=== PATIENT | female | born 1970 | race Caucasian/White ===

== ENCOUNTER → 2016-06-14 | Outpatient (CLI) | payer MEDICARE ==
[2016-06-14 13:13] VITALS: BP 136/63; PULSE 85; RESP 16; TEMP 98.3; BMI 39.4
--- NOTE | 2016-06-14 16:34 | P.HPBAR ---
Bariatric H&P - History & Physicial H&P Date: 06/14/16 History & Physicial: Visit/CC: Sleeve follow-up Patient initial contact: Initial weight: 132.857 kg Initial weight in pounds: 292.90 Height: 5 ft 4.5 in Initial BMI: 49.5 Last weight: Current weight: 105.942 kg Current weight in pounds: 233.00 Current BMI: 39.4 [place] body weight (based on NIH guidelines): 55.565 kg Excess body weight loss: 35.1% The patient is a 45 year-old F who presents for Bariatric Assessment. The patient presents today for sleeve follow-up. She is doing quite well. She lost 65 pounds total. She's lost 15 pounds her last visit. The patient is minimal planes of GERD. Past Medical History Additional Past Medical History / Comment(s): neuropathy, RSD, venous reflex disease History of Any Multi-Drug Resistant Organisms: None Reported Past Surgical History: Cholecystectomy, Joint Replacement, Tubal Ligation, Uterine Ablation Additional Past Surgical History / Comment(s): spinal cord stim, STIMULATOR REMOVED THEN PAIN PUMP INSERTED, right little finger reconnected, right ankle ORIF, 8-2-16 lap sleeve Past Anesthesia/Blood Transfusion Reactions: No Reported Reaction, Motion Sickness Additional Past Anesthesia/Blood Transfusion Reaction / Comm: clausterphobic Past Psychological History: Depression Additional Psychological History / Comment(s): pt stated feels well maintaimned by her medications has no thoughts of harmiong self Smoking Status: Never smoker Past Alcohol Use History: None Reported Additional Past Alcohol Use History / Comment(s): QUIT SMOKING 02/2013- SMOKED 1 PPD FOR 15 YRS Past Drug Use History: None Reported - Past Family History Mother Family Medical History: COPD Additional Family Medical History / Comment(s): history of breast and ovarian cancer in maternal side Father Family Medical History: Unable to Obtain Additional Family Medical History / Comment(s): pt was raised by step father Surgical - Exam Vital Signs Temp Pulse Resp BP 98.3 F 85 16 136/63 06/14/16 13:09 06/14/16 13:09 06/14/16 13:09 06/14/16 13:09 - General well developed, no distress - Eyes PERRL - ENT normal pinna - Neck no masses - Respiratory normal expansion - Cardiovascular Rhythm: regular - Abdomen Abdomen: soft, non tender Bariatric Assessment & Plan Plan: Status post sleeve gastric antrum. Patient is doing quite well. Her GERD symptoms will be observed. Bariatric Checklist Checklist: Plan: Checklist: EGD: 1. Hiatal hernia: 2. H. Pylori: HgbA1c: Vitamin D: Smoking: Never smoker Primary care physician referral: Dr. Jose Benjamin Psychiatry clearance: Cardiology clearance: Sleep study: Diet journal: VTE risk score: VTE risk level: Rehab needs at discharge:
== END | disposition home or self-care (01) ==
LOC: BARWHC3 12:48
PROVIDERS: ATTEND Surgery
DX: Z48.815 Encounter for surgical aftercare following surgery on the digestive system (principal); Z71.3 Dietary counseling and surveillance; E66.01 Morbid (severe) obesity due to excess calories; Z98.84 Bariatric surgery status; K21.9 Gastro-esophageal reflux disease without esophagitis; Z68.39 Body mass index [BMI] 39.0-39.9, adult
CPT/HCPCS: 97803; G0463; 99211

== ENCOUNTER → 2016-07-19 | Outpatient (CLI) | payer MEDICARE ==
[2016-07-19 13:51] VITALS: BP 141/63; PULSE 88; RESP 16; TEMP 98.1; BMI 38.6
--- NOTE | 2016-07-19 14:31 | P.HPBAR ---
Bariatric H&P - History & Physicial H&P Date: 07/19/16 History & Physicial: Visit/CC: Sleeve 01/06/16 Patient initial contact: Initial weight: 132.857 kg Initial weight in pounds: 292.90 Height: 5 ft 4.5 in Initial BMI: 49.5 Last weight: Current weight: 103.618 kg Current weight in pounds: 228.00 Current BMI: 38.6 [place] body weight (based on NIH guidelines): 55.565 kg Excess body weight loss: 38.0% The patient is a 45 year-old F who presents for Bariatric Assessment. The patient presents today for sleeve gastrectomy follow-up. She is doing quite well. She is loss another 6 pounds. Her current weight is 220 pounds. She's had some mild GERD symptoms. Past Medical History Additional Past Medical History / Comment(s): neuropathy, RSD, venous reflex disease History of Any Multi-Drug Resistant Organisms: None Reported Past Surgical History: Cholecystectomy, Joint Replacement, Tubal Ligation, Uterine Ablation Additional Past Surgical History / Comment(s): spinal cord stim, STIMULATOR REMOVED THEN PAIN PUMP INSERTED, right little finger reconnected, right ankle ORIF, 8--16 lap sleeve Past Anesthesia/Blood Transfusion Reactions: No Reported Reaction, Motion Sickness Additional Past Anesthesia/Blood Transfusion Reaction / Comm: clausterphobic Past Psychological History: Depression Additional Psychological History / Comment(s): pt stated feels well maintaimned by her medications has no thoughts of harmiong self Smoking Status: Never smoker Past Alcohol Use History: None Reported Additional Past Alcohol Use History / Comment(s): QUIT SMOKING 02/2013- SMOKED 1 PPD FOR 15 YRS Past Drug Use History: None Reported - Past Family History Mother Family Medical History: COPD Additional Family Medical History / Comment(s): history of breast and ovarian cancer in maternal side Father Family Medical History: Unable to Obtain Additional Family Medical History / Comment(s): pt was raised by step father Surgical - Exam Vital Signs Temp Pulse Resp BP 98.1 F 88 16 141/63 07/19/16 13:49 07/19/16 13:49 07/19/16 13:49 07/19/16 13:49 - General well developed, no distress - Eyes PERRL - ENT normal pinna - Neck no masses - Respiratory normal expansion - Cardiovascular Rhythm: regular - Abdomen Abdomen: soft, non tender Bariatric Assessment & Plan Plan: Improving morbid obesity. Patient's GERD symptoms are improving. She'll follow -up in one month. Bariatric Checklist Checklist: Plan: Checklist: EGD: 1. Hiatal hernia: 2. H. Pylori: HgbA1c: Vitamin D: Smoking: Never smoker Primary care physician referral: Dr. Jose Benjamin Psychiatry clearance: Cardiology clearance: Sleep study: Diet journal: VTE risk score: VTE risk level: Rehab needs at discharge:
== END | disposition home or self-care (01) ==
LOC: BARWHC3 13:23
PROVIDERS: ATTEND Surgery
DX: Z48.815 Encounter for surgical aftercare following surgery on the digestive system (principal); Z71.3 Dietary counseling and surveillance; Z87.891 Personal history of nicotine dependence; Z68.38 Body mass index [BMI] 38.0-38.9, adult; Z98.84 Bariatric surgery status; K21.9 Gastro-esophageal reflux disease without esophagitis
CPT/HCPCS: 97803; G0463; 99211

== ENCOUNTER → 2016-08-16 | Outpatient (CLI) | payer MEDICARE ==
[2016-08-16 14:00] VITALS: BP 123/78; PULSE 78; TEMP 97.9; BMI 37.5
--- NOTE | 2016-08-16 16:35 | P.HPBAR ---
Bariatric H&P - History & Physicial H&P Date: 08/16/16 History & Physicial: Visit/CC: 9 gabriel follow up visit Patient initial contact: Initial weight: 132.857 kg Initial weight in pounds: 292.90 Height: 5 ft 4.5 in Initial BMI: 49.5 Last weight: Current weight: 100.698 kg Current weight in pounds: 222.00 Current BMI: 37.5 [place] body weight (based on NIH guidelines): 55.565 kg Excess body weight loss: 41.6% The patient is a 45 year-old F who presents for Bariatric Assessment. Patient presents today for sleeve follow-up. She is feeling well. She's had some minimal GERD symptoms. Past Medical History Additional Past Medical History / Comment(s): neuropathy, RSD, venous reflex disease History of Any Multi-Drug Resistant Organisms: None Reported Past Surgical History: Bariatric Surgery, Cholecystectomy, Joint Replacement, Tubal Ligation, Uterine Ablation Additional Past Surgical History / Comment(s): spinal cord stim, STIMULATOR REMOVED THEN PAIN PUMP INSERTED, right little finger reconnected, right ankle ORIF, 8-2-16 lap sleeve Past Anesthesia/Blood Transfusion Reactions: No Reported Reaction, Motion Sickness Additional Past Anesthesia/Blood Transfusion Reaction / Comm: clausterphobic Past Psychological History: Depression Additional Psychological History / Comment(s): pt stated feels well maintaimned by her medications has no thoughts of harmiong self Smoking Status: Never smoker Past Alcohol Use History: None Reported Additional Past Alcohol Use History / Comment(s): QUIT SMOKING 02/2013- SMOKED 1 PPD FOR 15 YRS Past Drug Use History: None Reported - Past Family History Mother Family Medical History: COPD Additional Family Medical History / Comment(s): history of breast and ovarian cancer in maternal side Father Family Medical History: Unable to Obtain Additional Family Medical History / Comment(s): pt was raised by step father Surgical - Exam Vital Signs Temp Pulse BP 97.9 F 78 123/78 08/16/16 13:51 08/16/16 13:51 08/16/16 13:51 - General well developed, no distress - Eyes PERRL - ENT normal pinna - Neck no masses - Abdomen Abdomen: soft, non tender Bariatric Assessment & Plan Plan: Status post sleeve yesterday. Patient is doing fairly well from a weight loss standpoint. Her GERD symptoms are minimal and will be observed. She is currently being treated with omeprazole. She'll follow-up in 3 months. Bariatric Checklist Checklist: Plan: Checklist: EGD: 1. Hiatal hernia: 2. H. Pylori: HgbA1c: Vitamin D: Smoking: Never smoker Primary care physician referral: Dr. Jose Benjamin Psychiatry clearance: Cardiology clearance: Sleep study: Diet journal: VTE risk score: VTE risk level: Rehab needs at discharge:
== END | disposition home or self-care (01) ==
LOC: BARWHC3 13:13
PROVIDERS: ATTEND Surgery
DX: Z48.815 Encounter for surgical aftercare following surgery on the digestive system (principal); K21.9 Gastro-esophageal reflux disease without esophagitis; Z79.899 Other long term (current) drug therapy; Z68.37 Body mass index [BMI] 37.0-37.9, adult; Z98.84 Bariatric surgery status
CPT/HCPCS: 99211

== ENCOUNTER → 2016-09-13 | Outpatient (CLI) | payer MEDICARE ==
[2016-09-13 10:17] VITALS: BMI 37.3
--- NOTE | 2016-09-13 10:23 | P.HPBAR ---
Bariatric H&P - History & Physicial H&P Date: 09/13/16 History & Physicial: Visit/CC: sleeve f/u Patient initial contact: Initial weight: 132.857 kg Initial weight in pounds: 292.90 Height: 5 ft 4.5 in Initial BMI: 49.5 Last weight: Current weight: 100.244 kg Current weight in pounds: 221.00 Current BMI: 37.3 [place] body weight (based on NIH guidelines): 55.565 kg Excess body weight loss: 42.1% The patient is a 45 year-old F who presents for Bariatric Assessment. The patient presents today for sleeve gastrectomy follow-up. She is upset that she is almost 1 pounds her last visit. She denies any significant dysphagia. Her GERD symptoms are minimal. She is dealing with her arthritis and fibromyalgia pain. Past Medical History Additional Past Medical History / Comment(s): neuropathy, RSD, venous reflex disease History of Any Multi-Drug Resistant Organisms: None Reported Past Surgical History: Bariatric Surgery, Cholecystectomy, Joint Replacement, Tubal Ligation, Uterine Ablation Additional Past Surgical History / Comment(s): spinal cord stim, STIMULATOR REMOVED THEN PAIN PUMP INSERTED, right little finger reconnected, right ankle ORIF, 8-2-16 lap sleeve Past Anesthesia/Blood Transfusion Reactions: No Reported Reaction, Motion Sickness Additional Past Anesthesia/Blood Transfusion Reaction / Comm: clausterphobic Past Psychological History: Depression Additional Psychological History / Comment(s): pt stated feels well maintaimned by her medications has no thoughts of harmiong self Smoking Status: Never smoker Past Alcohol Use History: None Reported Additional Past Alcohol Use History / Comment(s): QUIT SMOKING 02/2013- SMOKED 1 PPD FOR 15 YRS Past Drug Use History: None Reported - Past Family History Mother Family Medical History: COPD Additional Family Medical History / Comment(s): history of breast and ovarian cancer in maternal side Father Family Medical History: Unable to Obtain Additional Family Medical History / Comment(s): pt was raised by step father Surgical - Exam - General well developed, no distress - Eyes PERRL - ENT normal pinna - Neck no masses - Respiratory normal expansion - Cardiovascular Rhythm: regular - Abdomen Abdomen: soft, non tender Bariatric Assessment & Plan Plan: Patient will be observed. She'll follow-up in one month.. Her GERD symptoms of being managed with omeprazole. Patient will see the dietitian next visit. Bariatric Checklist Checklist: Plan: Checklist: EGD: 1. Hiatal hernia: 2. H. Pylori: HgbA1c: Vitamin D: Smoking: Never smoker Primary care physician referral: Dr. Jose Benjamin Psychiatry clearance: Cardiology clearance: Sleep study: Diet journal: VTE risk score: VTE risk level: Rehab needs at discharge:
[2016-09-13 10:58] VITALS: BP 102/63; PULSE 80; RESP 16; TEMP 98.2
== END ==
LOC: BARWHC3 09:49
PROVIDERS: ATTEND Surgery
DX: Z48.815 Encounter for surgical aftercare following surgery on the digestive system (principal); K21.9 Gastro-esophageal reflux disease without esophagitis; Z98.84 Bariatric surgery status; Z87.891 Personal history of nicotine dependence
CPT/HCPCS: 99211

== ENCOUNTER → 2016-10-18 | Outpatient (CLI) | payer MEDICARE ==
[2016-10-18 13:45] VITALS: BP 97/55; PULSE 72; RESP 16; TEMP 98.2; BMI 36.8
[2016-10-18 14:53] LABS: ALT 29 U/L (9-52); AST 20 U/L (14-36); Alkaline Phosphatase 85 U/L (38-126); Anion Gap 11 mmol/L; Blood Urea Nitrogen 10 mg/dL (7-17); Calcium 9.7 mg/dL (8.4-10.2); Carbon Dioxide 28 mmol/L (22-30); Chloride 104 mmol/L (98-107); Glucose 91 mg/dL (74-99); Non-African American GFR(MDRD) >60 (>60 ml/min/1.73 sqM); Potassium 4.4 mmol/L (3.5-5.1); Sodium 143 mmol/L (137-145); Total Bilirubin 0.7 mg/dL (0.2-1.3); Total Protein 7.2 g/dL (6.3-8.2)
--- NOTE | 2016-10-18 14:58 | P.HPBAR ---
Bariatric H&P - History & Physicial H&P Date: 10/18/16 History & Physicial: Visit/CC: sleeve follow-up Patient initial contact: Initial weight: 132.857 kg Initial weight in pounds: 292.90 Height: 5 ft 4.5 in Initial BMI: 49.5 Last weight: Current weight: 98.94 kg Current weight in pounds: 218.00 Current BMI: 36.8 [place] body weight (based on NIH guidelines): 55.565 kg Excess body weight loss: 43.9% The patient is a 45 year-old F who presents for Bariatric Assessment. The patient presents for sleeve gastrectomy follow-up. She has lost approximately 85 pounds. She's had no issues with dysphagia. She has minimal heartburn and arthritis. Past Medical History Additional Past Medical History / Comment(s): neuropathy, RSD, venous reflex disease History of Any Multi-Drug Resistant Organisms: None Reported Past Surgical History: Bariatric Surgery, Cholecystectomy, Joint Replacement, Tubal Ligation, Uterine Ablation Additional Past Surgical History / Comment(s): spinal cord stim, STIMULATOR REMOVED THEN PAIN PUMP INSERTED, right little finger reconnected, right ankle ORIF, 8-2-16 lap sleeve Past Anesthesia/Blood Transfusion Reactions: No Reported Reaction, Motion Sickness Additional Past Anesthesia/Blood Transfusion Reaction / Comm: clausterphobic Past Psychological History: Depression Additional Psychological History / Comment(s): pt stated feels well maintaimned by her medications has no thoughts of harmiong self Smoking Status: Never smoker Past Alcohol Use History: None Reported Additional Past Alcohol Use History / Comment(s): QUIT SMOKING 02/2013- SMOKED 1 PPD FOR 15 YRS Past Drug Use History: None Reported - Past Family History Mother Family Medical History: COPD Additional Family Medical History / Comment(s): history of breast and ovarian cancer in maternal side Father Family Medical History: Unable to Obtain Additional Family Medical History / Comment(s): pt was raised by step father Surgical - Exam Vital Signs Temp Pulse Resp BP 98.2 F 72 16 97/55 10/18/16 13:40 10/18/16 13:40 10/18/16 13:40 10/18/16 13:40 - General well developed, no distress - Eyes PERRL - ENT normal pinna - Neck no masses - Respiratory normal expansion - Cardiovascular Rhythm: regular - Abdomen Abdomen: soft, non tender Bariatric Assessment & Plan Plan: Status post sleeve gastrectomy. Patient is doing quite well. Her GERD symptoms and arthritis will be observed. She'll follow-up one month. Bariatric Checklist Checklist: Plan: Checklist: EGD: 1. Hiatal hernia: 2. H. Pylori: HgbA1c: Vitamin D: Smoking: Never smoker Primary care physician referral: Dr. Jose Benjamin Psychiatry clearance: Cardiology clearance: Sleep study: Diet journal: VTE risk score: VTE risk level: Rehab needs at discharge:
[2016-10-18 15:41] LABS: Vitamin B12 626 pg/mL (239-931)
[2016-10-18 18:04] LABS: CH 29.6; CHCM 32.9; HCT 40.4 % (34.0-46.0); HDW 2.77; HGB 13.1 gm/dL (11.4-16.0); MCH 29.3 pg (25.0-35.0); MCHC 32.4 g/dL (31.0-37.0); MCV 90.4 fL (80.0-100.0); Mean Platelet Volume 7.6; RBC 4.47 m/uL (3.80-5.40); RDW 14.2 % (11.5-15.5); WBC 7.9 k/uL (3.8-10.6)
== END | disposition home or self-care (01) ==
LOC: BARWHC3 12:53
PROVIDERS: ATTEND Surgery
DX: Z48.815 Encounter for surgical aftercare following surgery on the digestive system (principal); E66.01 Morbid (severe) obesity due to excess calories; E55.9 Vitamin D deficiency, unspecified; Z98.84 Bariatric surgery status
CPT/HCPCS: 80053; 82607; 85027; 82306; 36415; G0463; 99211

== ENCOUNTER → 2016-12-13 | Outpatient (CLI) | payer MEDICARE ==
[2016-12-13 13:45] VITALS: BP 147/71; PULSE 65; RESP 16; TEMP 98.6; BMI 36.8
--- NOTE | 2016-12-13 16:24 | P.HPBAR ---
Bariatric H&P - History & Physicial H&P Date: 12/13/16 History & Physicial: Visit/CC: Patient initial contact: Initial weight: 132.857 kg Initial weight in pounds: 292.90 Height: 5 ft 4.5 in Initial BMI: 49.5 Last weight: 218 Current weight: 98.997 kg Current weight in pounds: 218.00 Current BMI: 36.8 [place] body weight (based on NIH guidelines): 55.565 kg Excess body weight loss: 43.9% The patient is a 46 year-old F who presents for Bariatric Assessment. The patient presents for sleeve yesterday fall. She is actually walked into the clinic for the first time. She did not use her wheelchair. The patient states that she's had some mild GERD. Her arthritis has improved. Past Medical History Additional Past Medical History / Comment(s): neuropathy, RSD, venous reflex disease History of Any Multi-Drug Resistant Organisms: None Reported Past Surgical History: Bariatric Surgery, Cholecystectomy, Joint Replacement, Tubal Ligation, Uterine Ablation Additional Past Surgical History / Comment(s): spinal cord stim, STIMULATOR REMOVED THEN PAIN PUMP INSERTED, right little finger reconnected, right ankle ORIF, 8-2-16 lap sleeve Past Anesthesia/Blood Transfusion Reactions: No Reported Reaction, Motion Sickness Additional Past Anesthesia/Blood Transfusion Reaction / Comm: clausterphobic Smoking Status: Never smoker - Past Family History Mother Family Medical History: COPD Additional Family Medical History / Comment(s): history of breast and ovarian cancer in maternal side Father Family Medical History: Unable to Obtain Additional Family Medical History / Comment(s): pt was raised by step father Surgical - Exam Vital Signs Temp Pulse Resp BP 98.6 F 65 16 147/71 12/13/16 13:43 12/13/16 13:43 12/13/16 13:43 12/13/16 13:43 - General well developed, no distress - Eyes PERRL - ENT normal pinna - Neck no masses - Respiratory normal expansion - Cardiovascular Rhythm: regular - Abdomen Abdomen: soft, non tender Bariatric Assessment & Plan Plan: Status post sleeve yesterday. Patient is doing quite well. Her GERD symptoms are minimal and observed. Her arthritis is improving. She'll follow-up one month for recheck. Bariatric Checklist Checklist: Plan: Checklist: EGD: 1. Hiatal hernia: 2. H. Pylori: HgbA1c: Vitamin D: Smoking: Never smoker Primary care physician referral: Dr. Jose Benjamin Psychiatry clearance: Cardiology clearance: Sleep study: Diet journal: VTE risk score: VTE risk level: Rehab needs at discharge:
== END | disposition home or self-care (01) ==
LOC: BARWHC3 13:22
PROVIDERS: ATTEND Surgery
DX: Z48.815 Encounter for surgical aftercare following surgery on the digestive system (principal); Z71.3 Dietary counseling and surveillance; E66.01 Morbid (severe) obesity due to excess calories; Z98.84 Bariatric surgery status; Z68.36 Body mass index [BMI] 36.0-36.9, adult; K21.9 Gastro-esophageal reflux disease without esophagitis; M19.90 Unspecified osteoarthritis, unspecified site
CPT/HCPCS: 97803; G0463; 99211

== ENCOUNTER → 2017-06-24 | Outpatient (CLI) | payer MEDICARE ==
--- NOTE | 2017-06-28 08:36 | MM ---
Reason for exam: screening (asymptomatic). Last mammogram was performed 2 years and 4 months ago. History: Patient is postmenopausal. Family history of breast cancer in sister at age 36, breast cancer in grandmother at age 35, and breast cancer in 2 aunts. Took estrogen for 1 year beginning at age 43. Physical Findings: A clinical breast exam by your physician is recommended on an annual basis and results should be correlated with mammographic findings. MG 3D Screening Mammo W/Cad Bilateral CC and MLO view(s) were taken. Prior study comparison: February 24, 2015, bilateral MG screening mammo w CAD. There are scattered fibroglandular densities. There is chronic nodularity in the right breast. No significant changes when compared with prior studies. ASSESSMENT: Negative, BI-RAD 1 RECOMMENDATION: Routine screening mammogram of both breasts in 1 year. Manage on a clinical basis with regard to right lateral breast pain.
== END | disposition home or self-care (01) ==
LOC: RADMAMWWP 09:52
PROVIDERS: ATTEND Family Medicine
DX: Z12.31 Encounter for screening mammogram for malignant neoplasm of breast (principal); Z80.3 Family history of malignant neoplasm of breast
CPT/HCPCS: 77063; 77067

== ENCOUNTER → 2018-03-16 | Outpatient (CLI) | payer MEDICARE ==
[2018-03-16 13:21] LABS: Basophils % (A) 1 %; Eosinophils # (A) 0.1 k/uL (0-0.7); Eosinophils % (A) 2 %; HGB 12.4 gm/dL (11.4-16.0); Lymphocytes # (A) 3.6 k/uL (1.0-4.8); Lymphocytes % (A) 50 %; MCH 28.9 pg (25.0-35.0); MCHC 32.5 g/dL (31.0-37.0); MCV 88.8 fL (80.0-100.0); Mean Platelet Volume 6.8; Monocytes # (A) 0.4 k/uL (0-1.0); Monocytes % (A) 5 %; Neutrophils % (A) 41 %; Platelet Count 263 k/uL (150-450); RBC 4.28 m/uL (3.80-5.40); RDW 14.1 % (11.5-15.5); WBC 7.2 k/uL (3.8-10.6)
[2018-03-16 13:47] LABS: ALT 49 U/L (9-52); AST 49 U/L (14-36); Alkaline Phosphatase 126 U/L (38-126); Anion Gap 7 mmol/L; Blood Urea Nitrogen 16 mg/dL (7-17); C Reactive Protein 6.7 mg/L (<10.0); Calcium 9.3 mg/dL (8.4-10.2); Carbon Dioxide 29 mmol/L (22-30); Chloride 105 mmol/L (98-107); Cholesterol 268 mg/dL (<200); Glucose 101 mg/dL (74-99); HDL Cholesterol 47 mg/dL (40-60); LDL Cholesterol,Calculated 148 mg/dL (0-99); Potassium 4.2 mmol/L (3.5-5.1); Sodium 141 mmol/L (137-145); Total Bilirubin 0.5 mg/dL (0.2-1.3); Total Protein 7.6 g/dL (6.3-8.2); Triglycerides 363 mg/dL (<150)
[2018-03-16 14:18] LABS: Erythrocyte Sedimentation Rate 28 mm/hr (0-20)
[2018-03-16 19:59] LABS: Iron Saturation 16.26 (12.00-45.00); Rheumatoid Factor 7 IU/mL (0-15)
[2018-03-16 20:11] LABS: Vitamin D 25 Hydroxy 16.5 ng/mL (30.0-100.0)
[2018-03-16 21:10] LABS: DNA Double-Stranded NEGATIVE (NEGATIVE)
== END ==
LOC: LABWHC1 11:47
PROVIDERS: ATTEND Nurse Practitioner Adult Health
DX: Z00.01 Encounter for general adult medical examination with abnormal findings (principal); F33.1 Major depressive disorder, recurrent, moderate; G89.4 Chronic pain syndrome; I73.9 Peripheral vascular disease, unspecified; R53.83 Other fatigue; E78.2 Mixed hyperlipidemia; D64.9 Anemia, unspecified
CPT/HCPCS: 36415; 80053; 80061; 82306; 82607; 83036; 83540; 83550; 84443; 85025; 85652; 86038; 86140; 86160; 86162; 86225; 86431

== ENCOUNTER 2020-01-03 01:01 | Emergency (ER) | payer MEDICARE ==
[2020-01-03 01:08] VITALS: TEMP 98.7
[2020-01-03] MEDS ORDERED: SODIUM CHLORIDE 0.9% 1,000 ML IV STA (01:16)
[2020-01-03] MEDS ORDERED: KETOROLAC 30 MG/ML 1 ML VIAL IVP STA (01:16)
[2020-01-03] MEDS ORDERED: HYDROmorphone 0.5 MG/0.5 ML SYRINGE IVP STA (01:16)
[2020-01-03] MEDS ORDERED: ONDANSETRON 4 MG/2 ML VIAL IVP STA (01:16)
--- NOTE | 2020-01-03 01:28 | ED ---
Abdominal Pain HPI - General Chief Complaint: Abdominal Pain Stated Complaint: Rt side abd pain Time Seen by Provider: 01/03/20 01:10 Source: patient Mode of arrival: ambulatory - History of Present Illness Initial Comments: 49-year-old female patient presents to the emergency department today for evaluation of right flank and right mid abdominal pain. Patient states the pain started a couple of hours ago. Patient states the pain is sharp in nature and feels deep. Patient denies history of similar type pain. States that she does have a pain pump implanted in the left upper quadrant for complex regional pain syndrome of the lower extremities. She did have an increase in her dosage of pain medication today. Patient denies any hematuria, dysuria, urinary frequency, urinary urgency. She denies any fever or chills. States she has been nauseated and did have an episode of vomiting. Denies any constipation or diarrhea. States that she has had cholecystectomy in the past, but no other abdominal surgeries. Patient denies any recent rash, cough, shortness of guero th, chest pain, numbness, tingling, dizziness, weakness, hematuria, dysuria, urinary urgency, urinary frequency, headache, visual changes, or any other complaints. - Related Data Home Medications Medication Instructions Recorded Confirmed HYDROmorphone HCL 4 mg PO TID 11/19/15 12/14/16 HYDROmorphone HCL [Dilaudid] 1 tab PO TID 08/16/16 12/14/16 Sennosides [Senokot] 1 tab PO DAILY 08/16/16 12/14/16 Previous Rx's Medication Instructions Recorded Gabapentin 800 mg PO TID #90 tablet 01/08/16 Ondansetron [Zofran ODT] 4 mg PO Q8HR PRN #10 tab 01/03/20 Tamsulosin HCl [Flomax] 0.4 mg PO DAILY #7 cap 01/03/20 Allergies Allergy/AdvReac Type Severity Reaction Status Date / Time No Known Allergies Allergy Verified 01/03/20 01:08 Review of Systems ROS Statement: Those systems with pertinent positive or pertinent negative responses have been documented in the HPI. ROS Other: All systems not noted in ROS Statement are negative. Past Medical History Additional Past Medical History / Comment(s): neuropathy, RSD, venous reflex disease History of Any Multi-Drug Resistant Organisms: None Reported Past Surgical History: Bariatric Surgery, Cholecystectomy, Joint Replacement, Tubal Ligation, Uterine Ablation Additional Past Surgical History / Comment(s): spinal cord stim, STIMULATOR REMOVED THEN PAIN PUMP INSERTED, right little finger reconnected, right ankle ORIF, 8-2-16 lap sleeve Past Anesthesia/Blood Transfusion Reactions: No Reported Reaction, Motion Sickness Additional Past Anesthesia/Blood Transfusion Reaction / Comment(s): clausterphobic Past Psychological History: Depression Smoking Status: Never smoker Past Alcohol Use History: None Reported Past Drug Use History: None Reported - Past Family History Mother Family Medical History: COPD Additional Family Medical History / Comment(s): history of breast and ovarian cancer in maternal side Father Family Medical History: Unable to Obtain Additional Family Medical History / Comment(s): pt was raised by step father General Exam General appearance: alert, in no apparent distress, other (This is a well-develo ped, well-nourished adult female patient in no acute distress. Vital signs upon presentation are temperature 98.7F, pulse 82, respirations 21, blood pressure 197/88, pulse ox 99% on room air.) Eye exam: Present: normal appearance, PERRL, EOMI. Absent: scleral icterus, con junctival injection, periorbital swelling ENT exam: Present: normal exam, normal oropharynx, mucous membranes moist Respiratory exam: Present: normal lung sounds bilaterally. Absent: respiratory distress, wheezes, rales, rhonchi, stridor Cardiovascular Exam: Present: regular rate, normal rhythm, normal heart sounds. Absent: systolic murmur, diastolic murmur, rubs, gallop, clicks GI/Abdominal exam: Present: soft, normal bowel sounds. Absent: distended, tenderness, guarding, rebound, rigid Back exam: Present: normal inspection. Absent: CVA tenderness (R), CVA tendern ess (L) Neurological exam: Present: alert, oriented X3, CN II-XII intact Psychiatric exam: Present: normal affect, normal mood Skin exam: Present: warm, dry, intact, normal color. Absent: rash Course Vital Signs 01/03/20 01/03/20 01:05 02:45 Temperature 98.7 F Pulse Rate 82 73 Respiratory 21 16 Rate Blood Pressure 197/88 140/73 O2 Sat by Pulse 99 93 L Oximetry Medical Decision Making - Medical Decision Making 49-year-old female patient presents to the emergency department today for evaluation of right flank and right mid abdominal pain that started a couple of hours ago. Physical examination revealed no abdominal tenderness, no CVA tenderness. Labs reviewed and revealed white blood cell count of 11.4. Normal renal function. Urinalysis showed a cloudy appearance with trace protein, moderate blood, greater than 182 red blood cells. Less than 1 white blood cell, negative leukocyte esterase. Patient is afebrile normal vital signs. CT abdomen and pelvis was obtained and showed a 7 mm obstructing calculus in the right proximal ureter with right-sided hydronephrosis. Upon reevaluation patient is resting comfortably in bed, she does have symptom improvement. I did discuss findings and results with the patient. Be discharged with Flomax and Zofran. She does have home pain medications she is instructed take these as directed. She is instructed to follow-up with urologist for further evaluation as soon as possible. Return parameters discussed in detail. She verbalizes understanding and agrees with this plan. - Lab Data Result diagrams: 01/03/20 01:32 01/03/20 01:32 Lab Results 01/03/20 01/03/20 01/03/20 Range/Units 01:32 01:32 01:32 WBC 11.4 H (3.8-10.6) k/uL RBC 4.82 (3.80-5.40) m/uL Hgb 12.5 (11.4-16.0) gm/dL Hct 41.8 (34.0-46.0) % MCV 86.8 (80.0-100.0) fL MCH 26.0 (25.0-35.0) pg MCHC 30.0 L (31.0-37.0) g/dL RDW 16.6 H (11.5-15.5) % Plt Count 266 (150-450) k/uL Neutrophils % 61 % Lymphocytes % 31 % Monocytes % 4 % Eosinophils % 2 % Basophils % 1 % Neutrophils # 7.0 (1.3-7.7) k/uL Lymphocytes # 3.5 (1.0-4.8) k/uL Monocytes # 0.5 (0-1.0) k/uL Eosinophils # 0.2 (0-0.7) k/uL Basophils # 0.1 (0-0.2) k/uL Hypochromasia Marked Anisocytosis Slight Sodium 139 (137-145) mmol/L Potassium 4.1 (3.5-5.1) mmol/L Chloride 104 (98-107) mmol/L Carbon Dioxide 31 H (22-30) mmol/L Anion Gap 4 mmol/L BUN 12 (7-17) mg/dL Creatinine 0.55 (0.52-1.04) mg/dL Est GFR (CKD-EPI)AfAm >90 (>60 ml/min/1.73 sqM) Est GFR (CKD-EPI)NonAf >90 (>60 ml/min/1.73 sqM) Glucose 139 H (74-99) mg/dL Plasma Lactic Acid Tevin 1.3 (0.7-2.0) mmol/L Calcium 9.5 (8.4-10.2) mg/dL Total Bilirubin 0.5 (0.2-1.3) mg/dL AST 26 (14-36) U/L ALT 16 (4-34) U/L Alkaline Phosphatase 153 H (38-126) U/L Total Protein 7.2 (6.3-8.2) g/dL Albumin 4.0 (3.5-5.0) g/dL Amylase 64 (30-110) U/L Lipase 144 (23-300) U/L Urine Color Urine Appearance (Clear) Urine pH (5.0-8.0) Ur Specific Mather (1.001-1.035) Urine Protein (Negative) Urine Glucose (UA) (Negative) Urine Ketones (Negative) Urine Blood (Negative) Urine Nitrite (Negative) Urine Bilirubin (Negative) Urine Urobilinogen (<2.0) mg/dL Ur Leukocyte Esterase (Negative) Urine RBC (0-5) /hpf Urine WBC (0-5) /hpf Ur Squamous Epith Cells (0-4) /hpf Urine Bacteria (None) /hpf Urine Mucus (None) /hpf 01/02/ Range/Units 02:23 WBC (3.8-10.6) k/uL RBC (3.80-5.40) m/uL Hgb (11.4-16.0) gm/dL Hct (34.0-46.0) % MCV (80.0-100.0) fL MCH (25.0-35.0) pg MCHC (31.0-37.0) g/dL RDW (11.5-15.5) % Plt Count (150-450) k/uL Neutrophils % % Lymphocytes % % Monocytes % % Eosinophils % % Basophils % % Neutrophils # (1.3-7.7) k/uL Lymphocytes # (1.0-4.8) k/uL Monocytes # (0-1.0) k/uL Eosinophils # (0-0.7) k/uL Basophils # (0-0.2) k/uL Hypochromasia Anisocytosis Sodium (137-145) mmol/L Potassium (3.5-5.1) mmol/L Chloride (98-107) mmol/L Carbon Dioxide (22-30) mmol/L Anion Gap mmol/L BUN (7-17) mg/dL Creatinine (0.52-1.04) mg/dL Est GFR (CKD-EPI)AfAm (>60 ml/min/1.73 sqM) Est GFR (CKD-EPI)NonAf (>60 ml/min/1.73 sqM) Glucose (74-99) mg/dL Plasma Lactic Acid Tevin (0.7-2.0) mmol/L Calcium (8.4-10.2) mg/dL Total Bilirubin (0.2-1.3) mg/dL AST (14-36) U/L ALT (4-34) U/L Alkaline Phosphatase (38-126) U/L Total Protein (6.3-8.2) g/dL Albumin (3.5-5.0) g/dL Amylase (30-110) U/L Lipase (23-300) U/L Urine Color Yellow Urine Appearance Cloudy H (Clear) Urine pH 6.5 (5.0-8.0) Ur Specific Mather 1.017 (1.001-1.035) Urine Protein Trace H (Negative) Urine Glucose (UA) Negative (Negative) Urine Ketones Negative (Negative) Urine Blood Moderate H (Negative) Urine Nitrite Negative (Negative) Urine Bilirubin Negative (Negative) Urine Urobilinogen 2.0 (<2.0) mg/dL Ur Leukocyte Esterase Negative (Negative) Urine RBC >182 H (0-5) /hpf Urine WBC <1 (0-5) /hpf Ur Squamous Epith Cells 1 (0-4) /hpf Urine Bacteria Occasional H (None) /hpf Urine Mucus Rare H (None) /hpf - Radiology Data Radiology results: report reviewed, image reviewed CT abdomen and pelvis without contrast is obtained. Report is reviewed in its entirety. Impression by Dr. Ramires shows obstructing calculus in the proximal right ureter with right-sided hydronephrosis. No other renal calculus seen. Normal appendix. Disposition Clinical Impression: Right kidney stone Disposition: HOME SELF-CARE Condition: Good Instructions (If sedation given, give patient instructions): Kidney Stones (ED), How to Strain Your Urine (ED) Additional Instructions: Increase fluids, especially water. Take home pain medication as prescribed. F ollow-up with urology for further evaluation as soon as possible. Follow-up with her primary care physician for recheck in 1-2 days. Return to the emergency department immediately for any new, worsening, or concerning symptoms. Prescriptions: Tamsulosin HCl [Flomax] 0.4 mg PO DAILY #7 cap Ondansetron [Zofran ODT] 4 mg PO Q8HR PRN #10 tab PRN Reason: Nausea Is patient prescribed a controlled substance at d/c from ED?: No Referrals: Ángel Travis MD [Primary Care Provider] - 1-2 days Donnell Jesus MD [STAFF PHYSICIAN] - 1-2 days Time of Disposition: 02:39
[2020-01-03 01:43] LABS: Anisocytosis Slight; Basophils # (A) 0.1 k/uL (0-0.2); Basophils % (A) 1 %; Eosinophils # (A) 0.2 k/uL (0-0.7); Eosinophils % (A) 2 %; HCT 41.8 % (34.0-46.0); HGB 12.5 gm/dL (11.4-16.0); Hypochromasia Marked; Lymphocytes # (A) 3.5 k/uL (1.0-4.8); Lymphocytes % (A) 31 %; MCV 86.8 fL (80.0-100.0); Mean Platelet Volume 7.6; Monocytes # (A) 0.5 k/uL (0-1.0); Monocytes % (A) 4 %; Neutrophils % (A) 61 %; Platelet Count 266 k/uL (150-450); RBC 4.82 m/uL (3.80-5.40); RDW 16.6 % (11.5-15.5); WBC 11.4 k/uL (3.8-10.6)
[2020-01-03 01:54] LABS: ALT 16 U/L (4-34); AST 26 U/L (14-36); African American GFR (CKD) >90 (>60 ml/min/1.73 sqM); Alkaline Phosphatase 153 U/L (38-126); Amylase 64 U/L (30-110); Anion Gap 4 mmol/L; Blood Urea Nitrogen 12 mg/dL (7-17); Calcium 9.5 mg/dL (8.4-10.2); Carbon Dioxide 31 mmol/L (22-30); Chloride 104 mmol/L (98-107); Glucose 139 mg/dL (74-99); Non-African American GFR(CKD) >90 (>60 ml/min/1.73 sqM); Potassium 4.1 mmol/L (3.5-5.1); Sodium 139 mmol/L (137-145); Total Bilirubin 0.5 mg/dL (0.2-1.3); Total Protein 7.2 g/dL (6.3-8.2)
--- NOTE | 2020-01-03 02:26 | CT ---
EXAMINATION TYPE: CT abdomen pelvis wo con DATE OF EXAM: 01/03/2020 COMPARISON: None HISTORY: RLQ pain CT DLP: 1727.4 mGycm Automated exposure control for dose reduction was used. Images were obtained from the diaphragm to the floor the pelvis with no contrast. Lung bases are clear of consolidation. There is no pleural effusion. Heart size is normal. Liver show s no focal defect. There is small calcified granuloma in the medial spleen. There is gastric bariatri c surgery. The pancreas appears normal. There is no adrenal mass. Kidneys have normal size. There is right-sided hydronephrosis and proximal hydroureter. There is 7 mm obstructing calculus in the proximal right ureter. There is no retroperito champ adenopathy. The bladder distends smoothly. There is no inguinal hernia. There is no free fluid i n the pelvis. Uterus is anteverted. The appendix is medial and appears normal. There is no mesenteric edema. There is no ascites or free air. There is no bowel obstruction. Lumbar vertebra have fairly normal spacing and alignment. Posterior elements are intact. There is no doris mal fracture. The bony pelvis appears intact. IMPRESSION: Obstructing calculus in the proximal right ureter with right-sided hydronephrosis. No other renal tin culus seen. Normal appendix.
[2020-01-03 02:32] LABS: Appearance,Urine Cloudy (Clear); Bacteria,Urine Occasional /hpf; Bilirubin,Urine Negative (Negative); Blood,Urine Moderate (Negative); Color,Urine Yellow; Glucose,Urine (UA) Negative (Negative); Ketones,Urine Negative (Negative); Leukocyte Esterase,Urine Negative (Negative); Mucus,Urine Rare /hpf; Nitrite,Urine Negative (Negative); PH, Urine 6.5 (5.0-8.0); Protein,Urine Trace (Negative); RBC,Urine >182 /hpf (0-5); Specific Gravity,Urine 1.017 (1.001-1.035); Squamous Epithelial Cell,Urine 1 /hpf (0-4); WBC,Urine <1 /hpf (0-5)
[2020-01-03] MEDS ORDERED: TAMSULOSIN 0.4 MG CAP.ER.24H PO STA (02:37)
[2020-01-03] MEDS ORDERED: ONDANSETRON 4 MG ODT STARTER PACK 2 TAB BTL PO STA (02:37)
[2020-01-03 02:48] VITALS: BP 140/73; PULSE 73; RESP 16
== END 2020-01-03 02:55 | disposition home or self-care (01) ==
LOC: EC 01:01
DX: N13.2 Hydronephrosis with renal and ureteral calculous obstruction (principal); Z90.49 Acquired absence of other specified parts of digestive tract; Z97.8 Presence of other specified devices; Z98.51 Tubal ligation status; Z98.84 Bariatric surgery status
CPT/HCPCS: 99284; 96374; 96375 ×2; 96361; 36415; 80053; 82150; 83605; 83690; 85025; 81001; 74176; J2405; J1885; S0119; J1170

== ENCOUNTER → 2020-01-04 | Day surgery (SDC) | payer MEDICARE ==
--- NOTE | 2020-01-03 20:04 | P.HPIHPCON ---
History of Present Illness H&P Date: 01/04/20 Ms. Connors is a 50-year-old female history of 7 mm right-sided ureteral stone. She's been having severe flank pain secondary to her obstructive stone. Discussed with her surgical options. She agreed to proceed with right-sided ureteroscopy, discussed with her the risk which includes but not limited to bleeding infection and injury to the ureter. She understood all the risk and agreed to proceed with right-sided ureteroscopy Consent for Procedure: I have explained the operation/procedure to the patient, including the risks, benefits, side effects, alternative therapies (including not receiving the proposed treatment or service), the likelihood of the patient achieving his/her goals, and potential recuperation problems for the procedure/sedation/analgesia, as well as any blood products, if indicated. I also explained to the patient the risks, benefits and side effects of the alternatives, as well as the risks related to not receiving the proposed procedure, care, treatment, or services. - Constitutional Constitutional: Denies chills, Denies fever - Cardiovascular Cardiovascular: Denies chest pain, Denies shortness of breath - Respiratory Respiratory: Denies cough, Denies 7 - Gastrointestinal Gastrointestinal: Denies abdominal pain, Denies diarrhea, Denies nausea, Denies vomiting Past Medical History Additional Past Medical History / Comment(s): neuropathy, RSD, venous reflex disease History of Any Multi-Drug Resistant Organisms: None Reported Past Surgical History: Bariatric Surgery, Cholecystectomy, Joint Replacement, Tubal Ligation, Uterine Ablation Additional Past Surgical History / Comment(s): spinal cord stim, STIMULATOR REMOVED THEN PAIN PUMP INSERTED, right little finger reconnected, right ankle ORIF, 8-2-16 lap sleeve Past Anesthesia/Blood Transfusion Reactions: No Reported Reaction, Motion Sickness Additional Past Anesthesia/Blood Transfusion Reaction / Comment(s): clausterphobic Past Psychological History: Depression Smoking Status: Never smoker Past Alcohol Use History: None Reported Past Drug Use History: None Reported - Past Family History Mother Family Medical History: COPD Additional Family Medical History / Comment(s): history of breast and ovarian cancer in maternal side Father Family Medical History: Unable to Obtain Additional Family Medical History / Comment(s): pt was raised by step father Medications and Allergies Home Medications Medication Instructions Recorded Confirmed Type RX: HYDROmorphone HCL 4 mg PO TID 11/19/15 12/14/16 History RX: Gabapentin 800 mg PO TID #90 tablet 01/08/16 12/14/16 Rx HYDROmorphone HCL [Dilaudid] 1 tab PO TID 08/16/16 12/14/16 History Sennosides [Senokot] 1 tab PO DAILY 08/16/16 12/14/16 History Ondansetron [Zofran ODT] 4 mg PO Q8HR PRN #10 tab 01/03/20 Rx Tamsulosin HCl [Flomax] 0.4 mg PO DAILY #7 cap 01/03/20 Rx Allergies Allergy/AdvReac Type Severity Reaction Status Date / Time No Known Allergies Allergy Verified 01/03/20 01:08 Surgical - Exam - General moderate distress, moderate pain - Respiratory normal expansion, normal respiratory effort - Psychiatric oriented to time, oriented to person, oriented to place, speech is normal Assessment and Plan Assessment: 49-year-old female history of 7 mm right-sided ureteral stone Plan: OR for cystoscopy, right ureteroscopy, holmium laser lithotripsy, stone basketing and stent placement
[~2020-01-04] MED LIST: DEXAMETHASONE SOD PHOSPHATE 10 MG/ML 1 ML VIAL IV ONE; GENTAMICIN 120 MG in SODIUM CHLORIDE 0.9% 100 ML IVPB ONE; IOPAMIDOL-370 50ML BTL IRRIGATION ONE; LACTATED RINGERS 1,000 ML IV SCH; LIDOCAINE 1% (10MG/ML) FOR IV START INTRADERMA ONE; LIDOCAINE 1% (10MG/ML) FOR IV START INTRADERMA PRN; LIDOCAINE 1% INJ 10MG/ML (20 ML MDV) ONE; MIDAZOLAM 2 MG/2 ML VIAL ONE; ONDANSETRON 4 MG/2 ML VIAL ONE; PROPOFOL 10 MG/ML 20 ML VIAL IV ONE; SCOPOLAMINE 1.5MG/72HR PATCH TRANSDERM ONE; SODIUM CHLORIDE 0.9% 1,000 ML IV ONE; SUCCINYLCHOLINE CHLORIDE 100 MG/5 ML SYR IV ONE; fentaNYL (PF) 50 MCG/ML 2 ML AMP IV ONE; fentaNYL (PF) 50 MCG/ML 2 ML AMP ONE
[2020-01-04] MEDS: ONDANSETRON 4 MG/2 ML VIAL IVP ONE ×2 (15:33→18:12)
[2020-01-04] MEDS: MIDAZOLAM 2 MG/2 ML VIAL IVP ONE ×2 (17:49→17:57)
[2020-01-04] MEDS: fentaNYL (PF) 50 MCG/ML 2 ML AMP IVP ONE ×4 (17:51→18:08)
--- NOTE | 2020-01-04 17:55 | P.OP ---
Date of Procedure: 01/04/20 Preoperative Diagnosis: Right ureteral calculi Postoperative Diagnosis: Same Procedure(s) Performed: Cystoscopy, right ureteroscopy, holmium laser lithotripsy, stone basketing, and stent placement Implants: 6-Comoran by 26 cm stent Anesthesia: CHEIL Surgeon: Donnell Jesus Estimated Blood Loss (ml): 10 Pathology: other (Ureteral calculi) Condition: stable Indications for Procedure: Ms. Connors is a 50-year-old female history of 7 mm right-sided ureteral stone. She's been having severe flank pain secondary to her obstructive stone. Discussed with her surgical options. She agreed to proceed with right-sided ureteroscopy, discussed with her the risk which includes but not limited to bleeding infection and injury to the ureter. She understood all the risk and agreed to proceed with right-sided ureteroscopy Operative Findings: Right proximal stone Description of Procedure: Patient was brought to the operating room, general anesthesia was induced. She was prepped and draped in sterile fashion a placement dorsal lithotomy position. Cystoscopy. 21 sheath was inserted per urethra cystoscopy was performed showed no abnormality within the bladder. Attention was then carried to the right ureteral orifice. Which was intubated with a sensor wire. The cystoscopy was removed with the wire in place. Next a semirigid ureteroscope was inserted, I attempted to advance the ureteroscope past ureteral orifice but she had a ureteral orifice narrowing. At this time the ureteroscope was withdrawn with the wire in place. Next a ureteral balloon dilator was passed over the wire and a ureteral orifice was dilated using the balloon dilator. Next the semirigid ureteroscope was inserted up the right ureteral orifice was advanced all the way up the proximal ureter where the stone was encountered. The stone was fragmen reza using the semirigid ureteroscope. some of the fragments migrated up to the kidney. This time the ureteroscope was withdrawn with the wire in place. Next a 11 x 13-Comoran access sheath was passed over the wire. Next the flexible ureteroscope was inserted through the access these and advanced into the kidney. The fragments were further broken up into smaller fragments. The sizable fragments were removed using the [employer] stone basket. The repeat renoscopy demonstrated no sizable fragments or any injury to the kidney. Pullback ureteroscopy was performed showed no injury to the ureter. Next a 6-Comoran by 26 cm stent was passed over the wire the proximal, the proximal curl was visualized on fluoroscopy and the distal curl was visualized using the cystoscope. The bladder was emptied and the case the patient was taken to PACU in stable condition
[2020-01-04 18:00] VITALS: TEMP 97
[2020-01-04 18:06] VITALS: RESP 20
[2020-01-04] MEDS: HYDROmorphone 0.5 MG/0.5 ML SYRINGE IVP PRN ×2 (18:07→18:13)
--- NOTE | 2020-01-04 18:42 | XR ---
EXAMINATION TYPE: XR KUB DATE OF EXAM: 01/04/2020 COMPARISON: None INDICATION: Cystoscopy, right stent placement TECHNIQUE: Abdomen is examined in the supine view with mobile apparatus. Fluoroscopy was unavailable. FINDINGS: There is a wire within the right abdomen. 3 sequential images demonstrate placement of a wire and the renal pelvis. Last image demonstrates the stent in the expected region of the right renal pelvis ext ending out of the [id number]. Psoas margins are normal. No organomegaly is present. Post cystectomy clips are present. IMPRESSION: 1. Right ureteral stent placement
[2020-01-04 19:02] VITALS: BP 162/88; PULSE 71
== END ==
LOC: OR 14:32
PROVIDERS: ATTEND Urology
DX: N20.1 Calculus of ureter (principal); G90.50 Complex regional pain syndrome I, unspecified; G62.9 Polyneuropathy, unspecified; I10 Essential (primary) hypertension; G90.523 Complex regional pain syndrome I of lower limb, bilateral; Z98.84 Bariatric surgery status; Z90.49 Acquired absence of other specified parts of digestive tract; Z98.51 Tubal ligation status; Z98.890 Other specified postprocedural states; F32.9 Major depressive disorder, single episode, unspecified; Z97.8 Presence of other specified devices; F40.240 Claustrophobia; Z83.6 Family history of other diseases of the respiratory system; Z80.3 Family history of malignant neoplasm of breast; Z80.41 Family history of malignant neoplasm of ovary; Z87.891 Personal history of nicotine dependence; Z79.891 Long term (current) use of opiate analgesic; Z79.899 Other long term (current) drug therapy
CPT/HCPCS: 82365; 74018; 52356; C2625; C1894; C1758; C1769; J2250; J1580; J1100; J0690; J2405; J2001; J3010; J0330; J2704; J1170; Q9967

== ENCOUNTER → 2020-10-22 | Outpatient (CLI) | payer MEDICARE ==
--- NOTE | 2020-10-22 11:49 | MM ---
Reason for exam: clinical finding. Last mammogram was performed 3 years and 4 months ago. History: Patient is postmenopausal. Family history of breast cancer in sister at age 36, breast cancer in grandmother at age 35, and breast cancer in 2 aunts. Took estrogen for 1 year beginning at age 43. Indicated problem(s): pain in the left breast. Physical Findings: Nurse Summary: 0.5 x 1cm nodule in the left breast at 3-4 o'clock (nurse db). MG 3D Diag Mammo W/Cad LOUIE Bilateral CC, MLO, and XCCL view(s) were taken. Prior study comparison: June 24, 2017, bilateral MG 3d screening mammo w/cad. February 24, 2015, bilateral MG screening mammo w CAD. The breast tissue is almost entirely fat. Ultrasound left breast at focal pain and palpable lump. These results were verbally communicated with the patient and result sheet given to the patient on 10/22/20. ASSESSMENT: Incomplete: need additional imaging evaluation, BI-RAD 0 RECOMMENDATION: Ultrasound of the left breast.
--- NOTE | 2020-10-22 11:50 | USB ---
Reason for exam: additional evaluation requested from abnormal screening. History: Patient is postmenopausal. Family history of breast cancer in sister at age 36, breast cancer in grandmother at age 35, and breast cancer in 2 aunts. Took estrogen for 1 year beginning at age 43. US Breast Limited LT Technologist: Miya Zhang Left limited breast ultrasound including focal area of concern, retroareolar and axilla demonstrates no cystic or solid lesion seen. Scanned 10-3 o'clock. These results were verbally communicated with the patient and result sheet given to the patient on 10/22/20. ASSESSMENT: Benign, BI-RAD 2 RECOMMENDATION: Routine screening mammogram of both breasts in 1 year.
== END | disposition home or self-care (01) ==
LOC: RADMAMWWP 07:10
PROVIDERS: ATTEND Internal Medicine
DX: N63.20 Unspecified lump in the left breast, unspecified quadrant (principal); N64.4 Mastodynia; Z78.0 Asymptomatic menopausal state; Z80.3 Family history of malignant neoplasm of breast
CPT/HCPCS: 77066; 76642; G0279; 77062

== ENCOUNTER → 2021-01-09 | Outpatient (CLI) | payer MEDICARE ==
[2021-01-10 00:34] LABS: INR 0.92 (0.90-1.11); Prothrombin Time 10.1 sec (9.9-11.9)
== END | disposition home or self-care (01) ==
LOC: LABWHC1 15:29
PROVIDERS: ATTEND Nurse Practitioner Adult Health
DX: F33.9 Major depressive disorder, recurrent, unspecified (principal); E03.9 Hypothyroidism, unspecified; E55.9 Vitamin D deficiency, unspecified; D50.9 Iron deficiency anemia, unspecified; G47.00 Insomnia, unspecified; I50.9 Heart failure, unspecified; G90.50 Complex regional pain syndrome I, unspecified; R94.39 Abnormal result of other cardiovascular function study; R73.9 Hyperglycemia, unspecified
CPT/HCPCS: 36415; 85610

== ENCOUNTER 2021-11-13 07:08 | Day surgery (SDC) | payer MEDICARE ==
[2021-11-11 09:54] VITALS: BMI 31.8
[~2021-11-13 07:08] MED LIST changes: -DEXAMETHASONE SOD PHOSPHATE 10 MG/ML 1 ML VIAL IV ONE; -GENTAMICIN 120 MG in SODIUM CHLORIDE 0.9% 100 ML IVPB ONE; -IOPAMIDOL-370 50ML BTL IRRIGATION ONE; -LIDOCAINE 1% (10MG/ML) FOR IV START INTRADERMA ONE; -LIDOCAINE 1% INJ 10MG/ML (20 ML MDV) ONE; -MIDAZOLAM 2 MG/2 ML VIAL ONE; -ONDANSETRON 4 MG/2 ML VIAL ONE; -PROPOFOL 10 MG/ML 20 ML VIAL IV ONE; -SCOPOLAMINE 1.5MG/72HR PATCH TRANSDERM ONE; -SODIUM CHLORIDE 0.9% 1,000 ML IV ONE; -SUCCINYLCHOLINE CHLORIDE 100 MG/5 ML SYR IV ONE; -fentaNYL (PF) 50 MCG/ML 2 ML AMP IV ONE; -fentaNYL (PF) 50 MCG/ML 2 ML AMP ONE
[2021-11-13 07:45] VITALS: TEMP 97.6
[2021-11-13] MEDS ORDERED: MIDAZOLAM 2 MG/2 ML VIAL ONE (08:02)
[2021-11-13] MEDS ORDERED: PROPOFOL 10 MG/ML 20 ML VIAL IV ONE (08:02)
[2021-11-13] MEDS ORDERED: fentaNYL (PF) 50 MCG/ML 2 ML AMP ONE (08:02)
--- NOTE | 2021-11-13 08:06 | P.HPIHPCON ---
History of Present Illness H&P Date: 11/13/21 51-year-old female presents today for screening colonoscopy. She has never had a colonoscopy previously. She denies any blood in her stool. She denies any family history of colon cancer. She does state that she has a son with Crohn's disease. Consent for Procedure: I have explained the operation/procedure to the patient, including the risks, benefits, side effects, alternative therapies (including not receiving the proposed treatment or service), the likelihood of the patient achieving his/her goals, and potential recuperation problems for the procedure/sedation/analgesia, as well as any blood products, if indicated. I also explained to the patient the risks, benefits and side effects of the alternatives, as well as the risks related to not receiving the proposed procedure, care, treatment, or services. - Review of Systems All systems: negative Past Medical History Past Medical History: Heart Failure, Hyperlipidemia, Hypertension, Thyroid Disorder Additional Past Medical History / Comment(s): neuropathy, RSD, venous reflex disease, CHRONIC PAIN History of Any Multi-Drug Resistant Organisms: None Reported Past Surgical History: Bariatric Surgery, Cholecystectomy, Orthopedic Surgery, Tubal Ligation, Uterine Ablation Additional Past Surgical History / Comment(s): spinal cord stim, STIMULATOR REMOVED THEN PAIN PUMP INSERTED, right little finger reconnected, right ankle ORIF, 8-2-16 lap sleeve, COLONOSCOPY Past Anesthesia/Blood Transfusion Reactions: No Reported Reaction, Motion Sickness Additional Past Anesthesia/Blood Transfusion Reaction / Comment(s): claustrophobic Smoking Status: Former smoker - Past Family History Mother Family Medical History: COPD Additional Family Medical History / Comment(s): history of breast and ovarian cancer in maternal side Father Family Medical History: Unable to Obtain Additional Family Medical History / Comment(s): pt was raised by step father Medications and Allergies Home Medications Medication Instructions Recorded Confirmed Type HYDROmorphone HCL 4 mg PO TID 11/19/15 11/11/21 History Gabapentin 800 mg PO TID #90 tablet 01/08/16 11/11/21 Rx Atorvastatin [Lipitor] 20 mg PO HS 11/11/21 11/11/21 History Citalopram Hydrobromide 40 mg PO DAILY 11/11/21 11/11/21 History Furosemide [Lasix] 60 mg PO DAILY 11/11/21 11/11/21 History Levothyroxine Sodium [Synthroid] 50 mcg PO DAILY 11/11/21 11/11/21 History Potassium Chloride ER [K-Dur 10] 10 meq PO DAILY 11/11/21 11/11/21 History Spironolactone 25 mg PO DAILY 11/11/21 11/11/21 History lisinopriL [Zestril] 5 mg PO DAILY 11/11/21 11/11/21 History Allergies Allergy/AdvReac Type Severity Reaction Status Date / Time pregabalin [From Lyrica] Allergy Unknown Verified 11/13/21 07:28 acetaminophen [From Tylenol] AdvReac Rash/Hives Verified 11/13/21 07:29 Surgical - Exam Osteopathic Statement: *. No significant issues noted on an osteopathic structural exam other than those noted in the History and Physical/Consult. Vital Signs Temp Pulse Resp BP Pulse Ox 97.6 F 72 20 132/57 100 11/13/21 07:42 11/13/21 07:42 11/13/21 07:42 11/13/21 07:42 11/13/21 07:42 - General no distress - Eyes normal ocular movement - Neck trachea midline - Respiratory normal respiratory effort - Abdomen Abdomen: soft, non tender Assessment and Plan Plan: 51-year-old female presents for screening colonoscopy. Risks, benefits and alternatives were presented to the patient. Further recommendations after procedure.
--- NOTE | 2021-11-13 08:28 | P.PCN ---
Date of Procedure: 11/13/21 Preoperative Diagnosis: Screening Postoperative Diagnosis: Ascending colon polyp Procedure(s) Performed: Colonoscopy with hot snare polypectomy Anesthesia: MAC Surgeon: Adal Landrum Pathology: other (Ascending colon polyp) Condition: stable Disposition: same day Indications for Procedure: 51-year-old female presents for screening colonoscopy. Risks, benefits and alternatives were provided. She has never had a colonoscopy previously. She denies family history of colon cancer. Operative Findings: Ascending colon polyp Description of Procedure: The patient was brought into the endoscopy suite and placed in left lateral decubitus position and adequate sedation was achieved using conscious sedation. A digital rectal exam was performed and mild internal hemorrhoids were palpated. An endoscope was then placed in the rectum and advanced to the cecum as identified by landmarks including the appendiceal orifice and the ileocecal valve. The prep was good. The colonoscope was then slowly withdrawn, examining for any mucosal abnormality. The cecum, ascending, transverse, descending and sigmoid colon were visualized adequately. There were no large neoplastic lesions throughout the colon. Small polyp was noted in the ascending colon. This was removed with hot snare polypectomy. Hemostasis was maintained. There is no evidence of diverticulosis. Retroflexion was performed in the rectum and internal hemorrhoids were visible. Excess air was removed, the colonoscope withdrawn and the procedure terminated. The patient was then transferred to the recovery unit in stable condition. Repeat colonoscopy should be performed in 5 years.
[2021-11-13 08:47] VITALS: BP 127/80; PULSE 66; RESP 20
== END 2021-11-13 08:59 | disposition home or self-care (01) ==
LOC: ORWHC2ENDO 07:08
PROVIDERS: ATTEND Surgery
DX: Z12.11 Encounter for screening for malignant neoplasm of colon (principal); D12.2 Benign neoplasm of ascending colon; K64.8 Other hemorrhoids; I11.0 Hypertensive heart disease with heart failure; I50.9 Heart failure, unspecified; E78.5 Hyperlipidemia, unspecified; E07.9 Disorder of thyroid, unspecified; G62.9 Polyneuropathy, unspecified; G90.50 Complex regional pain syndrome I, unspecified; F40.240 Claustrophobia; Z96.82 Presence of neurostimulator; Z83.79 Family history of other diseases of the digestive system; Z98.84 Bariatric surgery status; Z79.899 Other long term (current) drug therapy; Z79.890 Hormone replacement therapy; Z88.8 Allergy status to other drugs, medicaments and biological substances; Z90.49 Acquired absence of other specified parts of digestive tract; Z87.891 Personal history of nicotine dependence; Z98.890 Other specified postprocedural states; Z98.51 Tubal ligation status; Z97.2 Presence of dental prosthetic device (complete) (partial); Z82.5 Family history of asthma and other chronic lower respiratory diseases; Z80.3 Family history of malignant neoplasm of breast; Z80.41 Family history of malignant neoplasm of ovary
CPT/HCPCS: 88305; 45385; J2250; J3010; J2704

== ENCOUNTER → 2022-05-10 | Outpatient (CLI) | payer MEDICARE ==
--- NOTE | 2022-05-11 09:33 | MM ---
Reason for Exam: Screening (asymptomatic). Last mammogram was performed 1 year(s) and 7 month(s) ago. Patient History: Menarche at age 8. First Full-Term at age 20. Postmenopausal. Estrogen, starting at age 43 for 1 year. Maternal grandmother had breast cancer, age 35. Maternal aunt had breast cancer, age 35. Maternal aunt had breast cancer, age 48. Sister had breast cancer, age 36. Risk Values: Tita 5 year model risk: 2.2%. NCI Lifetime model risk: 17.3%. Prior Study Comparison: 02/24/2015 Bilateral Screening Mammogram, [facility]. 06/24/2017 Bilateral Screening Mammogram, [facility]. 10/22/2020 Bilateral Diagnostic Mammogram, [facility]. Tissue Density: There are scattered fibroglandular densities. Findings: Analyzed By CAD. There is no suspicious group of microcalcifications or new suspicious mass in either breast. Stable chronic nodularity in the right breast. No significant change from prior exams. Overall Assessment: Benign, BI-RAD 2 Management: Screening Mammogram of both breasts in 1 year. A clinical breast exam by your physician is recommended on an annual basis and results should be correlated with mammographic findings. Electronically signed and approved by: Augustin Doe D.O.
== END | disposition home or self-care (01) ==
LOC: RADMAMWWP 07:09
PROVIDERS: ATTEND Family Medicine
DX: Z12.31 Encounter for screening mammogram for malignant neoplasm of breast (principal); Z80.3 Family history of malignant neoplasm of breast; Z78.0 Asymptomatic menopausal state
CPT/HCPCS: 77063; 77067

== ENCOUNTER → 2023-07-15 | Outpatient (CLI) | payer MEDICARE ==
--- NOTE | 2023-07-18 08:21 | MM ---
Reason for Exam: Screening (asymptomatic). Last mammogram was performed 1 year(s) and 2 month(s) ago. Patient History: Menarche at age 8. First Full-Term at age 20. Postmenopausal. Estrogen, starting at age 43 for 1 year. Maternal grandmother had breast cancer, age 35. Maternal aunt had breast cancer, age 35. Maternal aunt had breast cancer, age 48. Sister had breast cancer, age 36. Risk Values: Tita 5 year model risk: 2.3%. NCI Lifetime model risk: 17.0%. Prior Study Comparison: 06/24/2017 Bilateral Screening Mammogram, [facility]. 10/22/2020 Bilateral Diagnostic Mammogram, [facility]. 05/10/2022 Bilateral MG 3D screening mammo w/cad, [facility]. Tissue Density: There are scattered fibroglandular densities. Findings: Analyzed By CAD. There is no suspicious group of microcalcifications or new suspicious mass. Overall Assessment: Negative, BI-RAD 1 Management: Screening Mammogram of both breasts in [address] [facility] will attempt to contact patient to return for supplemental views and ultrasound if indicated. Patient should continue monthly self-breast exams. A clinical breast exam by your physician is recommended on an annual basis. This exam should not preclude additional follow-up of suspicious palpable abnormalities. Note on Tita scores and lifetime risk: 1. A Tita score greater than 3% is considered moderate risk. If this is the case, consider specialist referral to assess eligibility for a risk reducing agent. 2. If overall lifetime risk for the development of breast cancer is 20% or higher, the patient may qualify for future screening with alternating mammogram and breast MRI. Electronically signed and approved by: Brigido Campos DO
== END | disposition home or self-care (01) ==
LOC: RADMAMWWP 09:12
PROVIDERS: ATTEND Family Medicine
DX: Z12.31 Encounter for screening mammogram for malignant neoplasm of breast (principal); Z80.3 Family history of malignant neoplasm of breast; Z78.0 Asymptomatic menopausal state
CPT/HCPCS: 77063; 77067

== ENCOUNTER → 2024-02-08 | Outpatient (CLI) | payer MEDICARE ==
[2024-02-08 22:10] LABS: NT-Pro-B-Type Natriuretic Pept <36 pg/mL (0-125)
== END | disposition home or self-care (01) ==
LOC: LABWHC1 10:19
PROVIDERS: ATTEND Student in an Organized Health Care Education/Training Program
DX: I50.9 Heart failure, unspecified (principal); E03.9 Hypothyroidism, unspecified
CPT/HCPCS: 36415; 83880; 84443

== ENCOUNTER 2024-04-02 10:00 | Day surgery (SDC) | payer MEDICARE ==
[2024-03-29 14:50] VITALS: BMI 36.6
[~2024-04-02 10:00] MED LIST changes: -LACTATED RINGERS 1,000 ML IV SCH; -LIDOCAINE 1% (10MG/ML) FOR IV START INTRADERMA PRN; +SODIUM CHLORIDE 0.9% 1,000 ML IV SCH
[2024-04-02] MEDS: SODIUM CHLORIDE 0.9% 500 ML 500 ML IV ONE (10:10)
[2024-04-02 10:17] VITALS: BP 133/70; PULSE 87; RESP 16; TEMP 98.6
--- NOTE | 2024-04-02 19:11 | P.EPPROC ---
- EP Procedure Note Electrophysiology Procedure Note: Diagnosis Recurrent syncope Twelve-lead EKG shows sinus rhythm normal AK narrow QRS nonspecific ST-T abnormality Tilt table test per protocol Baseline heart rate 73 beats a minute, baseline blood pressure 139/67 mmHg Drop in blood pressure 217/59 mmHg upon standing associated lightheadedness. However the blood pressure normalized thereafter and subsequently blood pressure remained normal, heart rate remained in the 80s and 90s The patient complained of a variety of symptoms No loss of consciousness she complained of lightheadedness and dizziness Impression Normal twelve-lead EKG Mild orthostatic drop in blood pressure upon assuming upright position, with normalization of blood pressure thereafter No evidence for neurocardiogenic syncope
== END 2024-04-02 11:49 | disposition home or self-care (01) ==
LOC: CATHEP 10:00
PROVIDERS: ATTEND Internal Medicine Clinical Cardiac Electrophysiology
CPT/HCPCS: 93660

== ENCOUNTER → 2024-09-24 | Outpatient (CLI) | payer MEDICARE ==
--- NOTE | 2024-09-24 13:24 | MM ---
Reason for Exam: Screening (asymptomatic). Last mammogram was performed 1 year(s) and 2 month(s) ago. Patient History: Menarche at age 8. First Full-Term at age 20. Postmenopausal. Estrogen, starting at age 43 for 1 year. Maternal grandmother had breast cancer, age 35. Maternal aunt had breast cancer, age 35. Maternal aunt had breast cancer, age 48. Sister had breast cancer, age 36. Risk Values: Tita 5 year model risk: 2.4%. NCI Lifetime model risk: 16.8%. Prior Study Comparison: 10/22/2020 Bilateral Diagnostic Mammogram, [facility]. 05/10/2022 Bilateral MG 3D screening mammo w/cad, [facility]. 07/15/2023 Bilateral MG 3D screening mammo w/cad, [facility]. Tissue Density: There are scattered areas of fibroglandular density. Findings: Analyzed By CAD. There is no suspicious group of microcalcifications or new suspicious mass in either breast. Overall Assessment: Negative, BI-RAD 1 Management: Screening Mammogram of both breasts in 1 year. . Patient should continue monthly self-breast exams. A clinical breast exam by your physician is recommended on an annual basis. This exam should not preclude additional follow-up of suspicious palpable abnormalities. Note on Tita scores and lifetime risk: 1. A Tita score greater than 3% is considered moderate risk. If this is the case, consider specialist referral to assess eligibility for a risk reducing agent. 2. If overall lifetime risk for the development of breast cancer is 20% or higher, the patient may qualify for future screening with alternating mammogram and breast MRI. [facility], , 09/24/2024 1:17 PM. Electronically signed and approved by: Flakito Srivastava M.D. Radiologis
== END | disposition home or self-care (01) ==
LOC: RADMAMWWP 12:43
PROVIDERS: ATTEND Family Medicine
DX: Z12.31 Encounter for screening mammogram for malignant neoplasm of breast (principal); R92.323 Mammographic fibroglandular density, bilateral breasts; Z78.0 Asymptomatic menopausal state; Z80.3 Family history of malignant neoplasm of breast
CPT/HCPCS: 77063; 77067

== ENCOUNTER 2024-11-20 07:14 | Day surgery (SDC) | payer MEDICARE ==
[2024-11-19 11:03] VITALS: BMI 43.2
[~2024-11-20 07:14] MED LIST changes: +LIDOCAINE 1% (10MG/ML) FOR IV START INTRADERMA PRN; -SODIUM CHLORIDE 0.9% 1,000 ML IV SCH
[2024-11-20 07:44] VITALS: RESP 16; TEMP 98.1
[2024-11-20] MEDS: LACTATED RINGERS 1,000 ML IV SCH (07:44)
[2024-11-20] MEDS: IV FLUID CONTINUATION 1,000 ML IV ONE (07:44)
[2024-11-20 07:48] LABS: Glucose,Whole Blood 113 mg/dL (70-110)
[2024-11-20] MEDS ORDERED: PROPOFOL 10 MG/ML 20 ML VIAL IV ONE (08:29)
--- NOTE | 2024-11-20 08:50 | P.PCN ---
Date of Procedure: 11/20/24 Procedure(s) Performed: BRIEF HISTORY: Patient is a 54-year-old pleasant white female scheduled for an elective colonoscopy as a part of screening for colon cancer. PROCEDURE PERFORMED: Colonoscopy with snare polypectomy. PREOPERATIVE DIAGNOSIS: Screening for colon cancer. IV sedation per Anesthesia. PROCEDURE: After informed consent was obtained, the patient, was brought into the endoscopy unit. IV sedation was administered by Anesthesia under continuous monitoring. Digital rectal examination was normal. Initially the Olympus CF-160 flexible video colonoscope was then inserted in the rectum, gradually advanced into the cecum without any difficulty. Careful examination was performed as the scope was gradually being withdrawn. Ileocecal valve and the appendiceal orifice were visualized and appeared normal. Prep was excellent. In the base of the cecum and the appendiceal orifice there was a 1 cm broad-based polyp that was removed by piecemeal snare polypectomy. Rest of the mucosa of the cecum, ascending colon, transverse colon, descending colon, appeared normal. The sigmoid colon is a 5 mm sessile polyp removed by cold snare polypectomy. In the rectum there was another 5 mm polyp removed with cold snare polypectomy. Rest of the sigmoid colon, and rectum appeared normal. Retroflexion was performed in the rectum and no lesions were seen. The patient tolerated the procedure well. IMPRESSION: 1 cm broad-based polyp in the base of the cecum inside the appendiceal orifice status post piecemeal snare polypectomy 5 mm sigmoid colon polyp status post polypectomy 5 mm proximal rectal polyp status post polypectomy RECOMMENDATIONS: Findings of this examination were discussed with the patient as well as the family.. She was advised to follow-up with the biopsy results. If the biopsy reveals adenoma she can have repeat colonoscopy in 3 years.
[2024-11-20 09:11] VITALS: BP 128/75; PULSE 68
== END 2024-11-20 09:27 | disposition home or self-care (01) ==
LOC: ORWHC2ENDO 07:14
PROVIDERS: ATTEND Internal Medicine Gastroenterology
DX: Z12.11 Encounter for screening for malignant neoplasm of colon (principal); D12.1 Benign neoplasm of appendix; K63.5 Polyp of colon; K62.1 Rectal polyp; E11.9 Type 2 diabetes mellitus without complications; E78.5 Hyperlipidemia, unspecified; I11.0 Hypertensive heart disease with heart failure; I50.9 Heart failure, unspecified; E07.9 Disorder of thyroid, unspecified; F40.240 Claustrophobia; F41.9 Anxiety disorder, unspecified; F32.A Depression, unspecified; G62.9 Polyneuropathy, unspecified; E66.9 Obesity, unspecified; Z79.899 Other long term (current) drug therapy; Z79.890 Hormone replacement therapy; Z79.82 Long term (current) use of aspirin; Z88.6 Allergy status to analgesic agent; Z88.8 Allergy status to other drugs, medicaments and biological substances
CPT/HCPCS: 45385; J2704; 88305

== ENCOUNTER 2024-12-06 09:13 | Inpatient (IN) | payer MEDICARE ==
--- NOTE | 2024-12-06 09:37 | ED ---
Nausea/Vomiting/Diarrhea HPI - General Chief complaint: Nausea/Vomiting/Diarrhea Stated complaint: vomiting Time Seen by Provider: 12/06/24 09:18 Source: patient, RN notes reviewed Mode of arrival: ambulatory Limitations: no limitations - History of Present Illness Initial comments: 54-year-old female presents the emergency department with chief complaint of nausea vomiting possible medication reaction. Patient states that she had her medication her pain pump switched. Patient states since Tuesday she has been having nausea but now started vomiting states that she been having spasms, uncontrolled states no fever. He does note increasing nasal congestion, cough. Denies any current headache or neck stiffness. 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 Vega - Related Data Home Medications Medication Instructions Recorded Confirmed HYDROmorphone HCL 4 mg PO BID 11/19/15 11/20/24 Atorvastatin [Lipitor] 20 mg PO HS 11/11/21 11/20/24 Citalopram Hydrobromide 40 mg PO DAILY 11/11/21 11/20/24 [Citalopram HBr] Levothyroxine Sodium [Synthroid] 50 mcg PO HS 11/11/21 11/20/24 Spironolactone 25 mg PO DAILY 11/11/21 11/20/24 Aspirin 81 mg PO DAILY 03/29/24 11/20/24 Black Cohosh Root [Black Cohosh] 200 mg PO DAILY 03/29/24 11/20/24 Semaglutide [Ozempic] 1 mg SQ Q7DAYS 03/29/24 11/20/24 Ondansetron [Zofran] 4 mg PO DIRECTED PRN 11/19/24 11/20/24 Previous Rx's Medication Instructions Recorded Gabapentin 800 mg PO TID #90 tablet 01/08/16 Allergies Allergy/AdvReac Type Severity Reaction Status Date / Time acetaminophen [From Tylenol] Allergy Rash/Hives Verified 12/06/24 09:17 pregabalin [From Lyrica] Allergy suicidal Verified 12/06/24 09:17 ideations Review of Systems ROS Statement: Those systems with pertinent positive or pertinent negative responses have been documented in the HPI. ROS Other: All systems not noted in ROS Statement are negative. Past Medical History Past Medical History: Heart Failure, Diabetes Mellitus, Hyperlipidemia, Hypertension, Thyroid Disorder, Vascular Disorder Additional Past Medical History / Comment(s): neuropathy, venous reflux disease, CHRONIC PAIN with a dx. of Complex Regional Pain Syndrome History of Any Multi-Drug Resistant Organisms: None Reported Past Surgical History: Bariatric Surgery, Cholecystectomy, Orthopedic Surgery, Tubal Ligation, Uterine Ablation Additional Past Surgical History / Comment(s): PAIN PUMP, right little finger reconnected, right ankle ORIF, 8-2-16 lap-sleeve, COLONOSCOPY Past Anesthesia/Blood Transfusion Reactions: No Reported Reaction, Motion Sickness Additional Past Anesthesia/Blood Transfusion Reaction / Comment(s): claustrophobic Past Psychological History: Anxiety, Depression Smoking Status: Former smoker Past Alcohol Use History: None Reported Past Drug Use History: Marijuana - Past Family History Mother Family Medical History: COPD Additional Family Medical History / Comment(s): history of breast and ovarian cancer in maternal side Father Family Medical History: Unable to Obtain Additional Family Medical History / Comment(s): pt was raised by step father General Exam Limitations: no limitations General appearance: alert, in no apparent distress Head exam: Present: atraumatic, normocephalic, normal inspection Eye exam: Present: normal appearance, PERRL, EOMI. Absent: scleral icterus, conjunctival injection, periorbital swelling ENT exam: Present: normal exam, mucous membranes moist Neck exam: Present: normal inspection, full ROM. Absent: tenderness, meningismus, lymphadenopathy Respiratory exam: Present: normal lung sounds bilaterally. Absent: respiratory distress, wheezes, rales, rhonchi, stridor Cardiovascular Exam: Present: normal rhythm, tachycardia, normal heart sounds. Absent: systolic murmur, diastolic murmur, rubs, gallop, clicks GI/Abdominal exam: Present: soft, normal bowel sounds. Absent: distended, tenderness, guarding, rebound, rigid Neurological exam: Present: alert, oriented X3, CN II-XII intact Skin exam: Present: warm, dry, intact, normal color. Absent: rash Course Vital Signs 12/06/24 12/06/24 09:14 12:00 Temperature 102 F H 99.9 F H Pulse Rate 144 H 100 Respiratory 24 97 H Rate Blood Pressure 130/71 109/58 O2 Sat by Pulse 97 95 Oximetry - Reevaluation(s) Reevaluation #1: 12/06/24 12:41 On reevaluation patient was updated on results regarding CT and x-ray findings along with laboratory findings. Upon updating patient, member lorena reported son who demanded to see imaging, lab results, begin aggressive swearing through the video chat. I did advise patient that this was not going to be tolerated and patient was to be admitted here for IV antibiotics, pulmonary evaluation and ID evaluation. Medical Decision Making - Medical Decision Making Was pt. sent in by a medical professional or institution (, PA, CIGARETTE PACKER, urgent care, hospital, or retirement...) When possible be specific @ -No Did you speak to anyone other than the patient for history (EMS, parent, family, police, friend...)? What history was obtained from this source @ -No Did you review nursing and triage notes (agree or disagree)? Why? @ -I reviewed and agree with nursing and triage notes Were old charts reviewed (outside hosp., previous admission, EMS record, old EKG, old radiological studies, urgent care reports/EKG's, retirement records)? Report findings @ -No old charts were reviewed Differential Diagnosis (chest pain, altered mental status, abdominal pain women, abdominal pain men, vaginal bleeding, weakness, fever, dyspnea, syncope, headache, dizziness, GI bleed, back pain, seizure, CVA, palpatations, mental health, musculoskeletal)? @ -Differential Fever: Pneumonia, viral URI, endocarditis, myocarditis, pericarditis, otitis, sinusitis, peritonsillar Abscess, retropharyngeal Abscess, epiglottitis, p eritonitis, appendicitis, [place] cystitis, diverticulitis, hepatitis, colitis, UTI, PID, TOA, pyelonephritis, prostatitis, epididymitis, meningitis, encephalitis, pulmonary embolism, CVA, thyroid storm, pancreatitis, adrenal crisis, cavernous sinus thrombosis, this is not meant to be an all-inclusive list. EKG interpreted by me (3pts min.). @ -As above X-rays interpreted by me (1pt min.). @ -Chest x-ray shows right lower lobe pneumonia CT interpreted by me (1pt min.). @ -No acute intra-abdominal process, there is evidence of right lower lobe pneumonia U/S interpreted by me (1pt. min.). @ -None done What testing was considered but not performed or refused? (CT, X-rays, U/S, labs)? Why? @ -None What meds were considered but not given or refused? Why? @ -None Did you discuss the management of the patient with other professionals (professionals i.e. , PA, CIGARETTE PACKER, lab, RT, psych nurse, social staff worker, jewel bearing polisher, teacher, senior escrow officer, family preservation caseworker)? Give summary @ -EMH for admission Was smoking cessation discussed for >3mins.? @ -No Was critical care preformed (if so, how long)? @ -No Were there social determinants of health that impacted care today? How? (Homelessness, low income, unemployed, alcoholism, drug addiction, transportation, low edu. Level, literacy, decrease access to med. care, long term, rehab)? @ -No Was there de-escalation of care discussed even if they declined (Discuss DNR or withdrawal of care, Hospice)? DNR status @ -No What co-morbidities impacted this encounter? (DM, HTN, Smoking, COPD, CAD, Cancer, CVA, ARF, Chemo, Hep., AIDS, mental health diagnosis, sleep apnea, morbid obesity)? @ -None Was patient admitted / discharged? Hospital course, mention meds given and route, prescriptions, significant lab abnormalities, going to OR and other pertinent info. @ -Admitted patient presented for noted fever, convulsions. Patient found to have right lower lobe pneumonia. Patient blood pressure has been marginal with blood pressure 90/50 after 2 L of fluids. Patient was given Rocephin, Zithromax and blood cultures were drawn. Patient admitted for pneumonia, sepsis. Patient will have ID and pulmonary consult. Undiagnosed new problem with uncertain prognosis? @ -No Drug Therapy requiring intensive monitoring for toxicity (Heparin, Nitro, Insulin, Cardizem)? @ -No Were any procedures done? @ -No Diagnosis/symptom? @ -Pneumonia, sepsis Acute, or Chronic, or Acute on Chronic? @ -Acute Uncomplicated (without systemic symptoms) or Complicated (systemic symptoms)? @ -Complicated Side effects of treatment? @ -No Exacerbation, Progression, or Severe Exacerbation? @ -No Poses a threat to life or bodily function? How? (Chest pain, [place], [place], pneumonia, PE, COPD, DKA, ARF, appy, cholecystitis, CVA, Diverticulitis, Homicidal, Suicidal, threat to staff... and all critical care pts) @ -Yes sepsis possible endorgan failure - Lab Data Result diagrams: 12/06/24 10:29 12/06/24 10:29 Lab Results 12/06/24 12/06/24 12/06/24 Range/Units 10:29 10: 10:29 WBC 6.51 (4.50-10.00) 10*3/uL RBC 4.32 (4.10-5.20) 10*6/uL Hgb 13.1 (12.0-15.0) g/dL Hct 40.3 (37.2-46.3) % MCV 93.3 (80.0-97.0) fL MCH 30.3 (27.0-32.0) pg MCHC 32.5 (32.0-37.0) g/dL Plt Count 200 (140-440) 10*3/uL MPV 9.7 (9.5-12.2) fL Immature Gran % (Auto) 0.6 % Neutrophils % 88.0 % Lymphocytes % 9.5 % Monocytes % 1.1 % Eosinophils % 0.5 % Basophils % 0.3 % Immature Gran # 0.04 (0.00-0.04) 10*3/uL Neutrophils # 5.73 (1.80-7.70) 10*3/uL Lymphocytes # 0.62 L (0.90-5.00) 10*3/uL Monocytes # 0.07 L (0.20-1.00) 10*3/uL Eosinophils # 0.03 L (0.04-0.35) 10*3/uL Basophils # 0.02 (0.00-0.10) 10*3/uL Sodium 142 (137-145) mmol/L Potassium 3.7 (3.5-5.1) mmol/L Chloride 107 (98-107) mmol/L Carbon Dioxide 22 (22-30) mmol/L Anion Gap 13 mmol/L BUN 14 (7-17) mg/dL Creatinine 0.53 (0.52-1.04) mg/dL Est GFR (CKD-EPI)AfAm >90 (>60 ml/min/1.73 sqM) Est GFR (CKD-EPI)NonAf >90 (>60 ml/min/1.73 sqM) Glucose 198 H (74-99) mg/dL Plasma Lactic Acid Tevin (0.7-2.0) mmol/L Calcium 9.3 (8.4-10.2) mg/dL Total Bilirubin 0.9 (0.2-1.3) mg/dL AST 38 H (14-36) U/L ALT 30 (4-34) U/L Alkaline Phosphatase 109 (38-126) U/L Total Protein 7.0 (6.3-8.2) g/dL Albumin 4.1 (3.5-5.0) g/dL Urine Color Colorless Urine Appearance Clear (Clear) Urine pH 5.0 (5.0-8.0) Ur Specific [place] 1.015 (1.001-1.035) Urine Protein Negative (Negative) Urine Glucose (UA) Negative (Negative) Urine Ketones Negative (Negative) Urine Blood Negative (Negative) Urine Nitrite Negative (Negative) Urine Bilirubin Negative (Negative) Urine Urobilinogen <2.0 (<2.0) mg/dL Ur Leukocyte Esterase Negative (Negative) Influenza Type A (PCR) (Not Detectd) Influenza Type B (PCR) (Not Detectd) RSV (PCR) (Not Detectd) SARS-CoV-2 (PCR) (Not Detectd) 12/06/24 12/06/24 Range/Units 10:29 10:29 WBC (4.50-10.00) 10*3/uL RBC (4.10-5.20) 10*6/uL Hgb (12.0-15.0) g/dL Hct (37.2-46.3) % MCV (80.0-97.0) fL MCH (27.0-32.0) pg MCHC (32.0-37.0) g/dL Plt Count (140-440) 10*3/uL MPV (9.5-12.2) fL Immature Gran % (Auto) % Neutrophils % % Lymphocytes % % Monocytes % % Eosinophils % % Basophils % % Immature Gran # (0.00-0.04) 10*3/uL Neutrophils # (1.80-7.70) 10*3/uL Lymphocytes # (0.90-5.00) 10*3/uL Monocytes # (0.20-1.00) 10*3/uL Eosinophils # (0.04-0.35) 10*3/uL Basophils # (0.00-0.10) 10*3/uL Sodium (137-145) mmol/L Potassium (3.5-5.1) mmol/L Chloride (98-107) mmol/L Carbon Dioxide (22-30) mmol/L Anion Gap mmol/L BUN (7-17) mg/dL Creatinine (0.52-1.04) mg/dL Est GFR (CKD-EPI)AfAm (>60 ml/min/1.73 sqM) Est GFR (CKD-EPI)NonAf (>60 ml/min/1.73 sqM) Glucose (74-99) mg/dL Plasma Lactic Acid Tevin 3.3 H* (0.7-2.0) mmol/L Calcium (8.4-10.2) mg/dL Total Bilirubin (0.2-1.3) mg/dL AST (14-36) U/L ALT (4-34) U/L Alkaline Phosphatase (38-126) U/L Total Protein (6.3-8.2) g/dL Albumin (3.5-5.0) g/dL Urine Color Urine Appearance (Clear) Urine pH (5.0-8.0) Ur Specific [place] (1.001-1.035) Urine Protein (Negative) Urine Glucose (UA) (Negative) Urine Ketones (Negative) Urine Blood (Negative) Urine Nitrite (Negative) Urine Bilirubin (Negative) Urine Urobilinogen (<2.0) mg/dL Ur Leukocyte Esterase (Negative) Influenza Type A (PCR) Not Detected (Not Detectd) Influenza Type B (PCR) Not Detected (Not Detectd) RSV (PCR) Not Detected (Not Detectd) SARS-CoV-2 (PCR) Not Detected (Not Detectd) - EKG Data -: EKG Interpreted by Me EKG Comments: At 9: 53 sinus tachycardia rate of 133 MT 175 QRS 75 QT/QTc 332/410 Disposition Clinical Impression: Pneumonia, Sepsis Disposition: ADMITTED IP TO THIS HOSP Condition: Fair Referrals: Rupa Gutierrez DO [Primary Care Provider] - 1-2 days Time of Disposition: 12:43
[2024-12-06] MEDS: IBUPROFEN 600 MG TAB PO STA (10:37)
[2024-12-06] MEDS: ONDANSETRON 4 MG/2 ML VIAL IVP STA (10:37)
[2024-12-06] MEDS: ACETAMINOPHEN TAB 325 MG TAB PO STA (10:38)
[2024-12-06] MEDS: SODIUM CHLORIDE 0.9% 2,000 ML IV STA (10:41)
[2024-12-06 10:42] LABS: Basophils # (A) 0.02 10*3/uL (0.00-0.10); Basophils % (A) 0.3 %; Eosinophils # (A) 0.03 10*3/uL (0.04-0.35); Eosinophils % (A) 0.5 %; HCT 40.3 % (37.2-46.3); HGB 13.1 g/dL (12.0-15.0); Lymphocytes # (A) 0.62 10*3/uL (0.90-5.00); Lymphocytes % (A) 9.5 %; MCH 30.3 pg (27.0-32.0); MCHC 32.5 g/dL (32.0-37.0); MCV 93.3 fL (80.0-97.0); Monocytes # (A) 0.07 10*3/uL (0.20-1.00); Monocytes % (A) 1.1 %; Neutrophils # (A) 5.73 10*3/uL (1.80-7.70); Neutrophils % (A) 88.0 %; Platelet Count 200 10*3/uL (140-440); RBC 4.32 10*6/uL (4.10-5.20); RDW 13.1 % (11.5-14.5); WBC 6.51 10*3/uL (4.50-10.00)
[2024-12-06 10:52] LABS: ALT 30 U/L (4-34); AST 38 U/L (14-36); African American GFR (CKD) >90 (>60 ml/min/1.73 sqM); Albumin 4.1 g/dL (3.5-5.0); Alkaline Phosphatase 109 U/L (38-126); Anion Gap 13 mmol/L; Blood Urea Nitrogen 14 mg/dL (7-17); Calcium 9.3 mg/dL (8.4-10.2); Carbon Dioxide 22 mmol/L (22-30); Chloride 107 mmol/L (98-107); Glucose 198 mg/dL (74-99); Non-African American GFR(CKD) >90 (>60 ml/min/1.73 sqM); Potassium 3.7 mmol/L (3.5-5.1); Sodium 142 mmol/L (137-145); Total Protein 7.0 g/dL (6.3-8.2)
--- NOTE | 2024-12-06 11:02 | XR ---
EXAMINATION TYPE: XR chest 2V DATE OF EXAM: 12/06/2024 10:53 AM COMPARISON: 08/28/2015 CLINICAL INDICATION: Female, 54 years old with history of fever: Shortness of breath TECHNIQUE: XR chest 2V views of the chest are obtained. FINDINGS: Scattered senescent parenchymal changes noted. Hyperinflation compatible with COPD. Right perihilar patchy density may reflect developing pneumonia. Correlate clinically and progress st udies are recommended. No evidence for atelectasis. Heart size is stable. Mediastinal structures are stable and grossly unremarkable. No evidence for hilar prominence. Degenerative changes dorsal spine. IMPRESSION: 1. Right perihilar patchy density may reflect developing pneumonia. Correlate clinically and progress studies are recommended. [facility], , 12/06/2024 11:00 AM
[2024-12-06 11:19] LABS: RSV Not Detected (Not Detectd)
--- NOTE | 2024-12-06 12:13 | CT ---
EXAMINATION TYPE: CT abdomen pelvis w con DATE OF EXAM: 12/06/2024 11:56 AM COMPARISON: 01/03/2020 CLINICAL INDICATION: Female, 54 years old with history of fever, pain, generalized pain, fever TECHNIQUE:CT scan of the abdomen and pelvis is performed without Oral Contrast and with IV Contrast, patient injected with 100 ml mL of Isovue 300. CT DLP: 2106.9 mGycm, Automated exposure control for dose reduction was used. FINDINGS: LUNG BASES-: No visible nodule. Patchy infiltrate right lower lobe suspicious for pneumonia. LIVER/GB: The gallbladder is surgically absent. No space occupying hepatic lesion. Biliary tree is of normal caliber. PANCREAS: No inflammation. No distinct mass. SPLEEN: No splenic enlargement. No lesion seen. ADRENALS: No nodule. No thickening. KIDNEYS/BLADDER: No hydronephrosis. No nephrolithiasis. No distinct renal mass. Urinary bladder g rossly unremarkable. BOWEL: Appendicolith near proximal appendix without appendiceal dilatation or inflammatory process. N ormal bowel caliber. No inflammation. GENITAL ORGANS: No gross abnormality. LYMPH NODES: No greater than 1cm abdominal or pelvic lymph nodes are appreciated. AORTA: No significant abnormality. OSSEOUS STRUCTURES: No significant abnormality is seen. OTHER: No significant additional abnormality is seen. IMPRESSION: 1. Patchy infiltrate right lower lobe suspicious for pneumonia. 2. No evidence for acute intra-abdominal process. [facility], , 12/06/2024 12:10 PM
[2024-12-06 12:32] LABS: Bilirubin,Urine Negative (Negative); Blood,Urine Negative (Negative); Color,Urine Colorless; Glucose,Urine (UA) Negative (Negative); Ketones,Urine Negative (Negative); Leukocyte Esterase,Urine Negative (Negative); Nitrite,Urine Negative (Negative); PH, Urine 5.0 (5.0-8.0); Protein,Urine Negative (Negative); Specific Gravity,Urine 1.015 (1.001-1.035); Urobilinogen,Urine <2.0 mg/dL (<2.0)
[2024-12-06] MEDS ORDERED: IPRATROPIUM-ALBUTEROL 3 ML NEB INHALATION PRN (12:43)
[2024-12-06] MEDS ORDERED: PNEUMONIA PROTOCOL UTILIZED 1 EACH MISC PO PRN (12:43)
[2024-12-06] MEDS: AZITHROMYCIN 500 MG in SODIUM CHLORIDE 0.9% 250 ML IVPB STA (14:37)
[2024-12-06] MEDS: SODIUM CHLORIDE 0.9% 1,000 ML IV SCH (14:38)
[2024-12-06] MEDS: IPRATROPIUM-ALBUTEROL 3 ML NEB INHALATION SCH (15:15)
[2024-12-06] MEDS: GABAPENTIN 400 MG CAP PO SCH (20:16)
[2024-12-06] MEDS: HYDROmorphone 2 MG TAB PO PRN (20:17)
--- NOTE | 2024-12-07 00:26 | HP ---
HISTORY AND PHYSICAL CHIEF COMPLAINT: Nausea, vomiting, cough as well as fever. HISTORY OF PRESENT ILLNESS: This 54-year-old woman with a past medical history of multiple medical problems including CHF, diabetes mellitus, hypertension, hyperlipidemia, being followed by in the outpatient setting. Apparently, had obtained pain pump refill by Dr. Carrasco recently. The patient apparently went to 2 [place] The patient has multiple symptomatology including fever, cough, as well as abdominal symptoms. The patient also had abnormal movements also the exact etiology, which is unknown and the patient was noted to have right lower pneumonia. The patient admitted for evaluation and treatment. There is no history of fever, rigors, chills at this time. PAST MEDICAL HISTORY: Reviewed include diabetes, hypertension, hyperlipidemia, chronic pain syndrome, back surgery. Rest of history from chart was reviewed. HOME MEDICATIONS: Reviewed. Include, Aldactone. Doses and rest of medications were reviewed, not confirmed yet. ALLERGIES: Tylenol. FAMILY HISTORY: History of COPD. SOCIAL HISTORY: Quit smoking THC. REVIEW OF SYSTEMS: Fourteen-point review of systems negative except as mentioned earlier PHYSICAL EXAMINATION: VITAL SIGNS: Pulse is 92, blood pressure 106/57, respirations 16, T-max 102 degrees. HEENT: Conjunctiva normal. Oral mucosa moist. NECK: No JVD. CARDIOVASCULAR: S1, S2. RESPIRATION: Few scattered rhonchi. ABDOMEN: Soft, nontender. No mass. EXTREMITIES: Legs, no edema. NERVOUS SYSTEM: Nonfocal. LABORATORY DATA: CBC within normal limits. Otherwise, lactic acid 3.3. ASSESSMENT: 1. Acute right lower pneumonia, possibly gram-negative. 2. Elevated lactic acidemia. 3. Abnormal movements, etiology uncertain. 4. Diabetes mellitus, type 2. 5. Hypertension. 6. Hyperlipidemia. 7. History of congestive heart failure. 8. Hypothyroidism. 9. Chronic pain syndrome. 10.Bariatric surgery. 11.History of multiple complex medical issues. RECOMMENDATIONS: This 54-year-old woman presented with multiple complex medical issues. We will monitor the patient closely. Continue the current medications. I recommend bronchodilators, empiric antibiotics. We will start the patient on Rocephin. Obtain cultures. Pulmonary consultations. Otherwise, Infectious Disease evaluation. I would also recommend Neurology evaluation to evaluate the abnormal movements also. The patient is apparently seen by [facility] also previously, but overall prognosis extremely guarded because of multiple complex medical issues. Further recommendations were discussed with the patient's family at the bedside. MMELEANORL / IJN: [id number] / JULEE
[2024-12-07] MEDS: ACETAMINOPHEN TAB 325 MG TAB PO PRN (01:06)
--- NOTE | 2024-12-07 06:57 | P.CONS ---
History of Present Illness - Reason for Consult Consult date: 12/06/24 Pneumonia, sepsis Requesting physician: Ernesto Pedroza - Chief Complaint Nausea and vomiting x few days - History of Present Illness Patient is a 54-year-old female with a past medical history significant for eart Failure, Diabetes Mellitus, Hyperlipidemia, Hypertension, Thyroid Disorder, Vascular Disorder presenting to the hospital for evaluation of nausea and vomiting symptom has been going on for the last few days patient was also complaining of increasing muscle spasm nasal congestion and cough which has been mild to moderate intensity not bringing up any sputum denies having any abdominal pain did not recall if she has any fever at home on presentation to the hospital patient was noted to be febrile with a temperature of 102 F patient was tachycardic and mildly hypertensive hypoxic currently on a 2 L nasal cannula oxygen patient did have a elevated lactic acid white count was 6.51 creatinine 0.62 electrolytes are normal liver enzymes except AST 38 rest of the more normal urine was negative influenza RSV COVID testing was negative patient did have a chest x-ray right perihilar patchy density may reflect developing pneumonia patient did have abdominal pelvis CT patient will read right lower lobe suspicious for pneumonia no evidence for acute intra-abdominal process patient was started on Rocephin and Zithromax infectious disease was consulted for further management of antibiotic therapy Review of Systems Positive point and negatives has been mentioned in the HPI, complete review of systems was performed and all other systems are negative Past Medical History Past Medical History: Heart Failure, Diabetes Mellitus, Hyperlipidemia, Hypertension, Thyroid Disorder, Vascular Disorder Additional Past Medical History / Comment(s): neuropathy, venous reflux disease, CHRONIC PAIN with a dx. of Complex Regional Pain Syndrome History of Any Multi-Drug Resistant Organisms: None Reported Past Surgical History: Bariatric Surgery, Cholecystectomy, Orthopedic Surgery, Tubal Ligation, Uterine Ablation Additional Past Surgical History / Comment(s): PAIN PUMP, right little finger reconnected, right ankle ORIF, 8-2-16 lap-sleeve, COLONOSCOPY Past Anesthesia/Blood Transfusion Reactions: No Reported Reaction, Motion Sickness Additional Past Anesthesia/Blood Transfusion Reaction / Comm: claustrophobic Past Psychological History: Anxiety, Depression Smoking Status: Former smoker Past Alcohol Use History: None Reported Past Drug Use History: Marijuana - Past Family History Mother Family Medical History: COPD Additional Family Medical History / Comment(s): history of breast and ovarian cancer in maternal side Father Family Medical History: Unable to Obtain Additional Family Medical History / Comment(s): pt was raised by step father Medications and Allergies Home Medications Medication Instructions Recorded Confirmed Type HYDROmorphone HCL 4 mg PO BID PRN 11/19/15 12/06/24 History Gabapentin 800 mg PO TID #90 tablet 01/08/16 12/06/24 Rx Atorvastatin [Lipitor] 20 mg PO HS 11/11/21 12/06/24 History Citalopram Hydrobromide 40 mg PO DAILY 11/11/21 12/06/24 History [Citalopram HBr] Levothyroxine Sodium [Synthroid] 50 mcg PO HS 11/11/21 12/06/24 History Spironolactone 25 mg PO DAILY 11/11/21 12/06/24 History Aspirin 81 mg PO DAILY 03/29/24 12/06/24 History Black Cohosh Root [Black Cohosh] 200 mg PO DAILY 03/29/24 12/06/24 History Semaglutide [Ozempic] 1 mg SQ WE 03/29/24 12/06/24 History Ondansetron [Zofran] 4 mg PO Q6H PRN 11/19/24 12/06/24 History Patient Own Pump 0 bag 12/06/24 History Selenium Sulfide 1 applic TOPICAL DIRECTED 12/06/24 12/06/24 History Allergies Allergy/AdvReac Type Severity Reaction Status Date / Time pregabalin [From Lyrica] AdvReac suicidal Verified 12/06/24 14:41 ideations Physical Exam Vitals: Vital Signs Temp Pulse Resp BP Pulse Ox 12/06/24 13:30 92 16 103/57 88 L 12/06/24 12:00 99.9 F H 100 97 H 109/58 95 12/06/24 09:14 102 F H 144 H 24 130/71 97 Intake and Output 12/05/24 12/06/24 12/06/24 22:59 06:59 14:59 Other: Weight 113.398 kg GENERAL DESCRIPTION: Middle-age female lying in bed, no distress. No tachypnea or accessory muscle of respiration use. HEENT: Shows Pallor , no scleral icterus. Oral mucous membrane is dry. NECK: Trachea central, no thyromegaly. LUNGS: Unlabored breathing. Decreased breath sound at the base HEART: S1, S2, regular rate and rhythm. No loud murmur ABDOMEN: Soft, no tenderness , guarding or rigidity, no organomegaly EXTREMITIES: No edema of feet. SKIN: No rash, no masses palpable. NEUROLOGICAL: The patient is awake, alert, oriented x3, mood and affect normal. Results CBC & Chem 7: 12/06/24 10:12/06/24 10: Labs: Abnormal Lab Results - Last 24 Hours (Table) 12/06/24 12/06/24 12/06/24 Range/Units 10: 10: 10:29 Lymphocytes # 0.62 L (0.90-5.00) 10*3/uL Monocytes # 0.07 L (0.20-1.00) 10*3/uL Eosinophils # 0.03 L (0.04-0.35) 10*3/uL Glucose 198 H (74-99) mg/dL Plasma Lactic Acid Tevin 3.3 H* (0.7-2.0) mmol/L AST 38 H (14-36) U/L 12/06/24 Range/Units 13:13 Lymphocytes # (0.90-5.00) 10*3/uL Monocytes # (0.20-1.00) 10*3/uL Eosinophils # (0.04-0.35) 10*3/uL Glucose (74-99) mg/dL Plasma Lactic Acid Tevin 2.9 H* (0.7-2.0) mmol/L AST (14-36) U/L Assessment and Plan (1) Pneumonia Current Visit: Yes Status: Acute Code(s): J18.9 - PNEUMONIA, UNSPECIFIED ORGANISM SNOMED Code(s): 034646558 (2) Sepsis Current Visit: Yes Status: Acute Code(s): A41.9 - SEPSIS, UNSPECIFIED ORGANISM SNOMED Code(s): 06285593 Plan: 1patient presented to hospital with acute nausea vomiting also have symptoms of cough and shortness of breath in this patient who did have fever tachycardia elevated lactic acid meeting criteria for SIRS/sepsis source is right middle lobe pneumonia with a question of community-acquired versus pneumonia of aspiration etiology 2we will try to obtain sputum for Gram stain and culture check urine for Legionella antigen 3patient will be empirically treated with Rocephin and Zithromax and see clinical response We will follow on clinical condition and cultures to further adjust medication if needed Thank you for this consultation we will follow the patient along with you Dictation was produced using [employer] dictation software. please excuse any grammatical, word or spelling errors. Time with Patient: Greater than 30
--- NOTE | 2024-12-07 08:15 | XR ---
EXAMINATION TYPE: XR chest 1V portable DATE OF EXAM: 12/07/2024 7:11 AM COMPARISON: Chest radiographs from 12/06/2024 CLINICAL INDICATION: Female, 54 years old with history of pneumonia; [facility] TECHNIQUE: XR chest 1V portable Frontal view of the chest. FINDINGS: Lungs/Pleura: Similar right perihilar airspace opacities. There is no evidence of pleural effusion, f ocal consolidation, or pneumothorax. Pulmonary vascularity: Unremarkable. Heart/mediastinum: Cardiomediastinal silhouette is unremarkable. Musculoskeletal: No acute osseous pathology. IMPRESSION: Right perihilar patchy density may reflect developing pneumonia. Correlate clinically and progress st udies are recommended. [facility], , 12/07/2024 8:13 AM
[2024-12-07 09:33] LABS: HCT 36.8 % (37.2-46.3); HGB 11.3 g/dL (12.0-15.0); MCH 29.7 pg (27.0-32.0); MCHC 30.7 g/dL (32.0-37.0); MCV 96.8 FL (80.0-97.0); NRBC Per 100 WBC 0 X 10*3/uL (0.00-0.01); Platelet Count 210 X 10*3/uL (140-440); RBC 3.80 X 10*6/uL (4.10-5.20); RDW 13.6 % (11.5-14.5); WBC 19.13 X 10*3/uL (4.50-10.00)
[2024-12-07 10:12] LABS: Basophils # (A) 0.05 X 10*3/uL (0.00-0.10); Basophils % (A) 0.3 %; Eosinophils # (A) 0.05 X 10*3/uL (0.04-0.35); Eosinophils % (A) 0.3 %; Immature Grans, Automated 0.50 %; Lymphocytes # (A) 2.79 X 10*3/uL (0.90-5.00); Lymphocytes % (A) 14.6 %; Monocytes # (A) 1.09 X 10*3/uL (0.20-1.00); Monocytes % (A) 5.7 %; Neutrophils # (A) 15.06 X 10*3/uL (1.80-7.70); Neutrophils % (A) 78.6 %
[2024-12-07] MEDS: AZITHROMYCIN 500 MG in SODIUM CHLORIDE 0.9% 250 ML IVPB SCH (10:38)
[2024-12-07 11:12] LABS: African American GFR (CKD) >90 (>60 ml/min/1.73 sqM); Non-African American GFR(CKD) >90 (>60 ml/min/1.73 sqM)
[2024-12-07 11:30] LABS: Anion Gap 14.90 mmol/L (4.00-12.00); BUN/Creat Ratio 30.00 Ratio (12.00-20.00); Blood Urea Nitrogen 15.0 mg/dL (9.0-27.0); Calcium 8.5 mg/dL (8.7-10.3); Carbon Dioxide 22.1 mmol/L (21.6-31.8); Chloride 103 mmol/L (96-109); Glucose 103 mg/dL (70-110); Potassium 3.8 mmol/L (3.5-5.5); Sodium 140 mmol/L (135-145)
[2024-12-07 12:35] LABS: Creatine Kinase 257 U/L (30-135)
--- NOTE | 2024-12-07 12:58 | CT ---
EXAMINATION TYPE: CT brain wo con DATE OF EXAM: 12/07/2024 12:33 PM COMPARISON: None. CLINICAL INDICATION: Female, 54 years old with history of confusion, confusion TECHNIQUE: Brain: Axial CT images of the brain were obtained with coronal and sagittal reformats created and rev iewed. Contrast used: None. Oral contrast used: None. CT DLP: 1111.7 mGycm, Automated exposure control for dose reduction was used. FINDINGS: Brain: Extra-axial spaces: No abnormal extra-axial fluid collections. Ventricular system: Within normal limits Cerebral parenchyma: No acute intraparenchymal hemorrhage or mass effect. The rolle-white junction is well differentiated. Cerebellum: Unremarkable. Mass effect: No evidence of midline shift. Intracranial vasculature: unremarkable Soft tissues: Normal. Calvarium/osseous structures: No depressed skull fracture. Paranasal sinuses and mastoid air cells: Mild scattered paranasal sinus disease. Visualized orbits: Orbital contents are intact. IMPRESSION: No acute intracranial process. [facility], , 12/07/2024 12:55 PM
--- NOTE | 2024-12-07 13:07 | CT ---
EXAMINATION TYPE: CT angio chest DATE OF EXAM: 12/07/2024 12:33 PM COMPARISON: Chest radiograph CLINICAL INDICATION: Female, 54 years old with history of Hypoxemia; hypoxemia TECHNIQUE/CONTRAST: CTA scan of the thorax is performed with IV Contrast, patient injected with 100 ml mL of Isovue 370, MIP images are created and reviewed these are created on a separate workstation.. CT DLP: 1733.2 mGycm, Automated exposure control for dose reduction was used. FINDINGS: Lungs/Pleura: Airspace opacities predominantly in the right upper lung but also involving the right l ower and left lower lobe. No evidence for pneumothorax or pleural effusion. Airway: Large airways are patent. Heart: Size within normal limits. No significant coronary artery calcifications. Vasculature: There is no evidence for a filling defect within the pulmonary vasculature to suggest ac mihir pulmonary embolism. The pulmonary artery is of normal size. Mediastinum: No gross evidence of adenopathy. Musculoskeletal: No acute osseous abnormalities Soft Tissues/lymph nodes: Unremarkable. Lower neck: No significant findings. Upper Abdomen: No significant findings. IMPRESSION: 1. No evidence of pulmonary embolism. 2. Multifocal airspace opacities compatible with pneumonia. [facility], , 12/07/2024 1:05 PM
--- NOTE | 2024-12-07 13:58 | P.CNNES ---
<Dinesh Sena - Last Filed: 12/07/24 15:35> History of Present Illness Consult date: 12/07/24 Requesting physician: Rebel Vazquez Reason for Consult: Abdominal wounds. Video available History of Present Illness: Patient is a 54-year-old female with diabetes mellitus, hyperlipidemia, hypertension, hypothyroidism, neuropathy who presented to the ED for nausea and vomiting. Patient reports hvaing complex regional pain syndrome diagnosed in 2010. Patient reported that her pain pump medication was increased by 9% a week ago and is in the process of switching pain meds but hasn't been changed yet. Her neurologist is Dr. Bai. Since Tuesday she has been having nausea. But yesterday she was started vomiting. Patient admitted to the hospital for acute right lower pneumonia. Patient seen today in neurological consultation for abnormal movements.She has been experiencing spasms of her back. Her recorded a video of her yesterday where she was involuntarily flailing her arms. She has little memory this episodes. She was able to talk during the episodes. She also mentioned that her leg fell off the recliner. Her symptoms lasted intermittently for about 4 hours yesterday. She is back to baseline currently. She denies prior history of stroke or seizures. Patient mentions going to a wedding recently where she had to walk, but mentions that it wasn't a lot, but it did cause her more pain due to her CRPS. She denies any recent increase in stress levels. Vitals, pulse 58 bpm, BP 98/40 Lactic acid 3.3 on admission, now trended down to 1.6 Glucose 198 Past Medical History Past Medical History: Heart Failure, Diabetes Mellitus, Hyperlipidemia, Hypertension, Thyroid Disorder, Vascular Disorder Additional Past Medical History / Comment(s): neuropathy, venous reflux disease, CHRONIC PAIN with a dx. of Complex Regional Pain Syndrome History of Any Multi-Drug Resistant Organisms: None Reported Past Surgical History: Bariatric Surgery, Cholecystectomy, Orthopedic Surgery, Tubal Ligation, Uterine Ablation Additional Past Surgical History / Comment(s): PAIN PUMP, right little finger reconnected, right ankle ORIF, 8-16 lap-sleeve, COLONOSCOPY Past Anesthesia/Blood Transfusion Reactions: No Reported Reaction, Motion Sickness Additional Past Anesthesia/Blood Transfusion Reaction / Comment(s): claustrophobic Past Psychological History: Anxiety, Depression Smoking Status: Former smoker Past Alcohol Use History: None Reported Past Drug Use History: Marijuana - Past Family History Mother Family Medical History: COPD Additional Family Medical History / Comment(s): history of breast and ovarian cancer in maternal side Father Family Medical History: Unable to Obtain Additional Family Medical History / Comment(s): pt was raised by step father Medications and Allergies Home Medications Medication Instructions Recorded Confirmed Type HYDROmorphone HCL 4 mg PO BID PRN 11/19/15 12/06/24 History Gabapentin 800 mg PO TID #90 tablet 01/08/16 12/06/24 Rx Atorvastatin [Lipitor] 20 mg PO HS 11/11/21 12/06/24 History Citalopram Hydrobromide 40 mg PO DAILY 11/11/21 12/06/24 History [Citalopram HBr] Levothyroxine Sodium [Synthroid] 50 mcg PO HS 11/11/21 12/06/24 History Spironolactone 25 mg PO DAILY 11/11/21 12/06/24 History Aspirin 81 mg PO DAILY 03/29/24 12/06/24 History Black Cohosh Root [Black Cohosh] 200 mg PO DAILY 03/29/24 12/06/24 History Semaglutide [Ozempic] 1 mg SQ WE 03/29/24 12/06/24 History Ondansetron [Zofran] 4 mg PO Q6H PRN 11/19/24 12/06/24 History Patient Own Pump 0 bag 12/06/24 History Selenium Sulfide 1 applic TOPICAL DIRECTED 12/06/24 12/06/24 History Allergies Allergy/AdvReac Type Severity Reaction Status Date / Time pregabalin [From Lyrica] AdvReac suicidal Verified 12/06/24 14:41 ideations Physical Examination - Vital Signs Vital Signs: Vital Signs Temp Pulse Pulse Resp BP BP Pulse Ox 12/07/24 07:14 98.0 F 58 L 17 98/47 100 12/07/24 06:12 98.2 F 73 18 97/62 98 12/07/24 04:39 72 16 98/53 96 12/07/24 02:00 79 18 90/56 98 12/07/24 01:03 74 18 88/50 98 12/06/24 23:00 72 12 98/51 96 12/06/24 22:00 77 18 95/52 96 12/06/24 20:29 84 18 12/06/24 20:20 80 18 12/06/24 20:15 80 12 104/57 97 12/06/24 19:00 79 12 109/56 95 12/06/24 16:47 98.7 F 85 18 98/51 95 12/06/24 15:45 88 14 92/51 95 12/06/24 15:31 82 12/06/24 15:16 84 12/06/24 14:00 81 16 109/59 94 L 12/06/24 13:30 92 16 103/57 88 L 12/06/24 12:00 99.9 F H 100 97 H 109/58 95 Intake and Output 12/06/24 12/07/24 12/07/24 22:59 06:59 14:59 Other: # Voids 0 Weight 113.398 kg General: no distress,sitting in bed Neuro: Patient is awake alert and oriented x 3. Extraocular movements intact no nystagmus, face is symmetric, facial sensation normal. On muscle strength testing, there is 4/5 in all 4 extremities Deep tendon reflexes are symmetric 1 at the biceps, brachioradialis, knees and plantars indeterminate Sensory to touch is equal on b/l UE and b/l LE, increased pain sensation on b/l LE due to CRPS Cerebellar function showed no ataxia for [id number] testing, No dysdiadochokinesia Results - Laboratory Findings CBC and BMP: 12/07/24 05:24 12/07/24 10:37 Abnormal Lab Findings: Abnormal Labs 12/06/24 12/06/24 12/06/24 10:29 10:29 10:29 Lymphocytes # 0.62 L Monocytes # 0.07 L Eosinophils # 0.03 L Glucose 198 H Plasma Lactic Acid Tevin 3.3 H* AST 38 H 12/06/24 12/06/24 12/06/24 13:13 17:01 20:21 Lymphocytes # Monocytes # Eosinophils # Glucose Plasma Lactic Acid Tevin 2.9 H* 2.2 H* 2.1 H* AST Assessment and Plan Assessment: Involuntary movements, likely medication induced, polypharmacy with Multiple pain meds, gabapentin, dilaudid, pain pump and Zofran Right lower lobe pneumonia Leukocytosis Diabetes mellitus Hyperlipidemia Hypertension Complex regional pain syndrome Plan: CT brain ordered, shows no acute intracranial process Obtain EEG Obtain CK and TSH Currently on azithromycin and Rocephin for pneumonia Dictation was produced using [employer] dictation software. please excuse any gram matical, word or spelling errors. Dinesh Sena MD PGY-2 IM <Julio Cesar Martínez - Last Filed: 12/07/24 17:12> Physical Examination - Vital Signs Vital Signs: Vital Signs Temp Pulse Pulse Resp BP BP Pulse Ox 12/07/24 16:40 88 12/07/24 16:30 82 12/07/24 14:00 97.7 F 78 17 96/63 99 12/07/24 09:59 80 12/07/24 09:49 84 100 12/07/24 07:14 98.0 F 58 L 17 98/47 100 12/07/24 06:12 98.2 F 73 18 97/62 98 12/07/24 04:39 72 16 98/53 96 12/07/24 02:00 79 18 90/56 98 12/07/24 01:03 74 18 88/50 98 12/06/24 23:00 72 12 98/51 96 12/06/24 22:00 77 18 95/52 96 12/06/24 20:29 84 18 12/06/24 20:20 80 18 12/06/24 20:15 80 12 104/57 97 12/06/24 19:00 79 12 109/56 95 Intake and Output 12/07/24 12/07/24 12/07/24 06:59 14:59 22:59 Other: Voiding Method Toilet # Voids 0 1 Weight 113.398 kg Results - Laboratory Findings CBC and BMP: 12/07/24 05:24 12/07/24 10:37 Abnormal Lab Findings: Abnormal Labs 12/06/24 12/06/24 12/06/24 10:29 10:29 10:29 WBC RBC Hgb Hct MCHC Immature Gran # Neutrophils # Lymphocytes # 0.62 L Monocytes # 0.07 L Eosinophils # 0.03 L Anion Gap Creatinine BUN/Creatinine Ratio Glucose 198 H Plasma Lactic Acid Tevin 3.3 H* Calcium AST 38 H Creatine Kinase 12/06/24 12/06/24 12/06/24 13:13 17:01 20:21 WBC RBC Hgb Hct MCHC Immature Gran # Neutrophils # Lymphocytes # Monocytes # Eosinophils # Anion Gap Creatinine BUN/Creatinine Ratio Glucose Plasma Lactic Acid Tevin 2.9 H* 2.2 H* 2.1 H* Calcium AST Creatine Kinase 12/07/24 12/07/24 12/07/24 05:24 05:25 12:07 WBC 19.13 H RBC 3.80 L Hgb 11.3 L Hct 36.8 L MCHC 30.7 L Immature Gran # 0.09 H Neutrophils # 15.06 H Lymphocytes # Monocytes # 1.09 H Eosinophils # Anion Gap 14.90 H Creatinine 0.5 L BUN/Creatinine Ratio 30.00 H Glucose Plasma Lactic Acid Tevin Calcium 8.5 L AST Creatine Kinase 257 H Assessment and Plan Assessment: This is a 54-year-old woman with history of complex regional pain syndrome who is on baclofen pump and multiple pain medication who had her baclofen pump dose increased in the past 7 to 8 days, is also on a high dose of gabapentin, Dilaudid and yesterday she had involuntary movements and was confused. No history of seizure. With these episodes she did not have any urinary or bowel incontinence or any tongue bite. Likely her involuntary movement is due to the polypharmacy/pain medication. Currently she is back to baseline. Plan: Recommend for titration of her baclofen pump and avoid significant sedation/opiate use which can cause confusion and myoclonus. TSH is 1.210 CK level is 257 Preliminary routine EEG: Is abnormal. The background slowing is suggestive of mild encephalopathy likely due to toxic-metabolic derragement. Otherwise, no focal slowing, epileptiform discharges or seizure on EEG. Recommend the patient to follow-up with her outpatient neurologist, Dr. Carrasco within 2-3 weeks. I personally examined the patient and reviewed the labs and imaging. I agree with the residents assessment and plan There is no additional neurological workup. Will sign off. Please reconsult if needed Julio Cesar Martínez M.D. Time with Patient: Greater than 30
--- NOTE | 2024-12-07 14:51 | P.PN ---
Progress Note - Text Progress Note Date: 12/07/24 Preliminary routine EEG: Is abnormal. The background slowing is suggestive of mild encephalopathy likely due to toxic-metabolic derragement. Otherwise, no focal slowing, epileptiform discharges or seizure on EEG.
--- NOTE | 2024-12-07 14:58 | P.CNPUL ---
History of Present Illness Consult date: 12/07/24 Requesting physician: Ernesto Pedroza Reason for consult: abnormal CXR/CT Chief complaint: Nausea, vomiting, spasms History of present illness: This is a pleasant 54-year-old female with a known history of hypertension, hyperlipidemia, hypothyroidism, neuropathy, chronic pain requiring a pain pump with recent change in her pain medications. She also has a history of smoking and using marijuana. She presented here to the emergency room yesterday after having complaints of nausea and asked tensive vomiting. She developed spasms and had uncontrolled muscle jerking and behavior as recorded by her family with their cell phone. A chest x-ray revealed a right perihilar patchy density possibly reflecting pneumonia. CT scan of the abdomen revealed no acute abdominal process however a patchy infiltrate in the right lower lobe suspicious for pneumonia was noted. She is seen today in consultation on the regular medical floor. She is currently sitting up in bed. Awake and alert in no acute distress. She currently denies any fever, chills. No shortness of breath. No cough or congestion. No hemoptysis. She did states she vomited quite a bit yesterday and does not remember much of what brought her into the hospital. CT scan of the brain revealed no acute intracranial process. White count 19.1. Hemoglobin 11.3. Platelets 210. Sodium 140. Potassium 3.8. Bicarb 22. BUN 15. Creatinine 0.52. Glucose 103. Ammonia level less than 9. TSH 1.21. Viral screen negative for influenza A/B, RSV, COVID. Urine Legionella screen negative. Urinalysis clean. She is currently maintaining O2 saturations up to 99% on room air oxygen. She did have a Tmax of 102 on admission. Currently she is afebrile. Hemodynamically stable. Review of Systems REVIEW OF SYSTEMS: CONSTITUTIONAL: Denies any recent significant weight loss or weight gain. EYES: Denies change in vision. EARS, NOSE, MOUTH, THROAT: Denies headaches, denies sore throat. CARDIOVASCULAR: Denies chest pain, palpitations or syncopal episodes. RESPIRATORY: Denies shortness of breath, cough, congestion or hemoptysis. GASTROINTESTINAL: Positive for nausea and vomiting. GENITOURINARY: Denies hematuria, denies infections. MUSKULOSKELETAL: Denies pain, denies swelling. INTEGUMENTARY: Denies rash, denies eczema. NEUROLOGICAL: Bizarre uncontrolled muscle movement. Does not recall the situa tion. No recent seizure activity. PSYCHIATRIC: Denies anxiety, denies depression. HEMATOLOGIC/LYMPHATIC: Denies anemia, denies enlarged lymph nodes. Past Medical History Past Medical History: Heart Failure, Diabetes Mellitus, Hyperlipidemia, Hypertension, Thyroid Disorder, Vascular Disorder Additional Past Medical History / Comment(s): neuropathy, venous reflux disease, CHRONIC PAIN with a dx. of Complex Regional Pain Syndrome History of Any Multi-Drug Resistant Organisms: None Reported Past Surgical History: Bariatric Surgery, Cholecystectomy, Orthopedic Surgery, Tubal Ligation, Uterine Ablation Additional Past Surgical History / Comment(s): PAIN PUMP, right little finger reconnected, right ankle ORIF, 8-07-22 lap-sleeve, COLONOSCOPY Past Anesthesia/Blood Transfusion Reactions: No Reported Reaction, Motion Sickness Additional Past Anesthesia/Blood Transfusion Reaction / Comment(s): claustrophobic Past Psychological History: Anxiety, Depression Smoking Status: Former smoker Past Alcohol Use History: None Reported Past Drug Use History: Marijuana - Past Family History Mother Family Medical History: COPD Additional Family Medical History / Comment(s): history of breast and ovarian cancer in maternal side Father Family Medical History: Unable to Obtain Additional Family Medical History / Comment(s): pt was raised by step father Medications and Allergies Home Medications Medication Instructions Recorded Confirmed Type HYDROmorphone HCL 4 mg PO BID PRN 11/19/15 12/06/24 History Gabapentin 800 mg PO TID #90 tablet 01/08/16 12/06/24 Rx Atorvastatin [Lipitor] 20 mg PO HS 11/11/21 12/06/24 History Citalopram Hydrobromide 40 mg PO DAILY 11/11/21 12/06/24 History [Citalopram HBr] Levothyroxine Sodium [Synthroid] 50 mcg PO HS 11/11/21 12/06/24 History Spironolactone 25 mg PO DAILY 11/11/21 12/06/24 History Aspirin 81 mg PO DAILY 03/29/24 12/06/24 History Black Cohosh Root [Black Cohosh] 200 mg PO DAILY 03/29/24 12/06/24 History Semaglutide [Ozempic] 1 mg SQ WE 03/29/24 12/06/24 History Ondansetron [Zofran] 4 mg PO Q6H PRN 11/19/24 12/06/24 History Patient Own Pump 0 bag 12/06/24 History Selenium Sulfide 1 applic TOPICAL DIRECTED 12/06/24 12/06/24 History Allergies Allergy/AdvReac Type Severity Reaction Status Date / Time pregabalin [From Lyrica] AdvReac suicidal Verified 12/06/24 14:41 ideations Physical Exam Vitals: Vital Signs Temp Pulse Pulse Resp BP BP Pulse Ox 12/07/24 14:00 97.7 F 78 17 96/63 99 12/07/24 09:59 80 12/07/24 09:49 84 100 12/07/24 07:14 98.0 F 58 L 17 98/47 100 12/07/24 06:12 98.2 F 73 18 97/62 98 12/07/24 04:39 72 16 98/53 96 12/07/24 02:00 79 18 90/56 98 12/07/24 01:03 74 18 88/50 98 12/06/24 23:00 72 12 98/51 96 12/06/24 22:00 77 18 95/52 96 12/06/24 20:29 84 18 12/06/24 20:20 80 18 12/06/24 20:15 80 12 104/57 97 12/06/24 19:00 79 12 109/56 95 12/06/24 16:47 98.7 F 85 18 98/51 95 12/06/24 15:45 88 14 92/51 95 12/06/24 15:31 82 12/06/24 15:16 84 Intake and Output 12/06/24 12/07/24 12/07/24 22:59 06:59 14:59 Other: # Voids 0 Weight 113.398 kg GENERAL EXAM: Alert, active, pleasant 54-year-old female, on room air oxygen, comfortable in no apparent distress. HEAD: Normocephalic. EYES: Normal reaction of pupils, equal size. NOSE: Clear with pink turbinates. THROAT: No erythema or exudates. NECK: No masses, no JVD. CHEST: No chest wall deformity. LUNGS: Equal air entry with few scattered rhonchi s. CVS: S1 and S2 normal with no audible murmur, regular rhythm. ABDOMEN: No hepatosplenomegaly, normal bowel sounds, no guarding or rigidity. SPINE: No scoliosis or deformity SKIN: No rashes CENTRAL NERVOUS SYSTEM: No focal deficits, tone is normal in all 4 extremities. EXTREMITIES: There is no peripheral edema. No clubbing, no cyanosis. Peripheral pulses are intact. Results - Laboratory Findings CBC and BMP: 12/07/24 05:24 12/07/24 10:37 Abnormal lab findings: Abnormal Labs 12/06/24 12/06/24 12/06/24 10:29 10:29 10:29 WBC RBC Hgb Hct MCHC Immature Gran # Neutrophils # Lymphocytes # 0.62 L Monocytes # 0.07 L Eosinophils # 0.03 L Anion Gap Creatinine BUN/Creatinine Ratio Glucose 198 H Plasma Lactic Acid Tevin 3.3 H* Calcium AST 38 H Creatine Kinase 12/06/24 12/06/24 12/06/24 13:13 17:01 20:21 WBC RBC Hgb Hct MCHC Immature Gran # Neutrophils # Lymphocytes # Monocytes # Eosinophils # Anion Gap Creatinine BUN/Creatinine Ratio Glucose Plasma Lactic Acid Tevin 2.9 H* 2.2 H* 2.1 H* Calcium AST Creatine Kinase 12/07/24 12/07/24 12/07/24 05:24 05:25 12:07 WBC 19.13 H RBC 3.80 L Hgb 11.3 L Hct 36.8 L MCHC 30.7 L Immature Gran # 0.09 H Neutrophils # 15.06 H Lymphocytes # Monocytes # 1.09 H Eosinophils # Anion Gap 14.90 H Creatinine 0.5 L BUN/Creatinine Ratio 30.00 H Glucose Plasma Lactic Acid Tevin Calcium 8.5 L AST Creatine Kinase 257 H - Diagnostic Findings Chest x-ray: image reviewed Assessment and Plan Assessment: Nausea, vomiting and altered mental status with uncontrolled muscle movement and behavior as documented by family members on their cell phone. CT scan of the brain revealed no acute intracranial process. CT scan of the abdomen revealed no acute abdominal process Febrile illness suspect secondary to community-acquired versus aspiration pneumonia. Legionella screen negative. Viral screen negative for influenza A/B, RSV, COVID Leukocytosis secondary to above Acute Hypoxic respiratory failure secondary to above History of chronic tobacco dependence History of marijuana use Chronic pain syndrome maintained on a pain pump with recent change in medication Hypertension Hyperlipidemia Hypothyroidism Diabetes mellitus Diabetic neuropathy History of anxiety/depression Plan: The patient was seen and evaluated All imaging, labs and medications reviewed Currently stable and on room air oxygen Will obtain a CT angiogram of the chest Continue ceftriaxone Continue azithromycin Continue DuoNeb inhalations Resume home medications Infectious disease consulted Neurology consulted We will continue to follow and make further recommendations based on her clinical status I have personally seen and examined the patient, performed the documentation and the assessment and plan as written. Number of minutes spent on the visit: 20 Dictation was produced using [employer] dictation software. Please excuse any grammatical, word or spelling errors. Time with Patient: Greater than 30
--- NOTE | 2024-12-07 14:59 | P.PN ---
Subjective Progress Note Date: 12/07/24 Principal diagnosis: Reason for follow-up with pneumonia likely aspiration etiology Patient is a 54-year-old female with a past medical history significant for eart Failure, Diabetes Mellitus, Hyperlipidemia, Hypertension, Thyroid Disorder, Vascular Disorder presenting to the hospital for evaluation of nausea and vomiting and also have cough with sputum production and some blood in it CT abdominal pelvis still shows evidence of right-sided pneumonia. On today's evaluation that is 12/07/2024, the patient did have resolution of her fever and is afebrile this morning, the patient is on room air and breathing comfortably, the Pt denies having any chest pain complaining of cough and is bringing up some purulent sputum with blood in it no further nausea vomiting ab dominal pain or diarrhea. The patient white count is 19.13, creatinine 0.52 electrolytes has been normal urine for Legionella antigen negative sputum cultures pending Objective - Vital Signs Vital signs: Vital Signs Temp 97.7 F 12/07/24 14:00 Pulse 78 12/07/24 14:00 Resp 17 12/07/24 14:00 BP 96/63 12/07/24 14:00 Pulse Ox 99 12/07/24 14:00 FiO2 Intake & Output 12/06/24 12/07/24 12/07/24 18:59 06:59 18:59 Weight 113.398 kg 113.398 kg Other: # Voids 0 - Exam GENERAL DESCRIPTION: Middle-age female lying in bed in no distress RESPIRATORY SYSTEM: Unlabored breathing , decreased breath sounds at bases HEART: S1 S2 regular rate and rhythm , ABDOMEN: Soft , no tenderness EXTREMITIES: No edema feet - Labs CBC & Chem 7: 12/07/24 05:24 12/07/24 10:37 Labs: Abnormal Lab Results - Last 24 Hours (Table) 12/06/24 12/06/24 12/07/24 Range/Units 17:01 20:21 05:24 WBC 19.13 H (4.50-10.00) X 10*3/uL RBC 3.80 L (4.10-5.20) X 10*6/uL Hgb 11.3 L (12.0-15.0) g/dL Hct 36.8 L (37.2-46.3) % MCHC 30.7 L (32.0-37.0) g/dL Immature Gran # 0.09 H (0.00-0.04) X 10*3/uL Neutrophils # 15.06 H (1.80-7.70) X 10*3/uL Monocytes # 1.09 H (0.20-1.00) X 10*3/uL Anion Gap (4.00-12.00) mmol/L Creatinine (0.6-1.5) mg/dL BUN/Creatinine Ratio (12.00-20.00) Ratio Plasma Lactic Acid Tevin 2.2 H* 2.1 H* (0.7-2.0) mmol/L Calcium (8.7-10.3) mg/dL Creatine Kinase (30-135) U/L 12/07/24 12/07/24 Range/Units 05:25 12:07 WBC (4.50-10.00) X 10*3/uL RBC (4.10-5.20) X 10*6/uL Hgb (12.0-15.0) g/dL Hct (37.2-46.3) % MCHC (32.0-37.0) g/dL Immature Gran # (0.00-0.04) X 10*3/uL Neutrophils # (1.80-7.70) X 10*3/uL Monocytes # (0.20-1.00) X 10*3/uL Anion Gap 14.90 H (4.00-12.00) mmol/L Creatinine 0.5 L (0.6-1.5) mg/dL BUN/Creatinine Ratio 30.00 H (12.00-20.00) Ratio Plasma Lactic Acid Tevin (0.7-2.0) mmol/L Calcium 8.5 L (8.7-10.3) mg/dL Creatine Kinase 257 H (30-135) U/L Microbiology - Last 24 Hours (Table) 12/06/24 16:51 Gram Stain - Preliminary Sputum Sputum Culture - Preliminary Assessment and Plan (1) Pneumonia Current Visit: Yes Status: Acute Code(s): J18.9 - PNEUMONIA, UNSPECIFIED ORGANISM SNOMED Code(s): 384766999 (2) Sepsis Current Visit: Yes Status: Acute Code(s): A41.9 - SEPSIS, UNSPECIFIED ORGANISM SNOMED Code(s): 79745238 Plan: 1patient presented to hospital with acute nausea vomiting also have symptoms of cough and shortness of breath in this patient who did have fever tachycardia elevated lactic acid meeting criteria for SIRS/sepsis source is right middle lobe pneumonia with a question of community-acquired versus pneumonia of aspiration etiology 2, patient urine for Legionella antigen is negative sputum cultures are pending 3patient did have CT angiogram of the chest that was negative for PE still shows pneumonia mostly on the right upper and middle lobe concerning for possible aspiration etiology 4I will discontinue Rocephin azithromycin and start patient on Unasyn while waiting for the sputum culture finalized Patient and family has multiple questions those has been answered in layman terms Dictation was produced using [employer] dictation software. please excuse any grammatical, word or spelling errors. Time with Patient: Less than 30
--- NOTE | 2024-12-07 15:24 | EEG ---
ELECTROENCEPHALOGRAM REPORT CLINICAL HISTORY: This is a 54-year-old woman with abnormal movement of her body and confusion. The video EEG is obtained to evaluate for seizure epileptiform activity. RELEVANT MEDICATIONS: Baclofen, Dilaudid, gabapentin. EEG TYPE: Routine 21 channel EEG is performed with video using the 10/20 electrode placement system. DESCRIPTION: Wakefulness is only obtained. During the awake state, the posterior-dominant rhythm consists of [id number] voltage of 9 to 9.5 hertz activity that is well modulated, well sustained. At rare times, the background is diffusely delta activity with no evolution, lasting 1 to 3 seconds intermixed with theta activity. There was no physiological stage 2 sleep architecture. There is no focal slowing. Interictal and ictal are none. ACTIVATION PROCEDURE: Photic stimulation did not evoke a posterior driving response. There is no abnormality during the photic stimulation. Hyperventilation is not performed. CLINICAL INTERPRETATION: This is an abnormal routine EEG during awake state. The background slowing is suggestive of mild encephalopathy likely due to toxic metabolic derangement. Otherwise, there is no focal slowing, epileptiform discharges, or seizure on the EEG. Lack of epileptiform discharge does not rule out underlying epilepsy. Clinical correlation is recommended. MMODL / IJN: [id number] /
--- NOTE | 2024-12-07 23:32 | PN ---
PROGRESS NOTE DATE OF SERVICE: 12/07/2024 SUBJECTIVE: This is a 54-year-old woman who is admitted with nausea, vomiting pneumonia. The patient is on broad spectrum IV antibiotics. Multiple consultants are following the patient closely at this time. The patient was following the patient closely. Chest CTA, official report is pending at this time. PAST MEDICAL HISTORY: Reviewed. REVIEW OF SYSTEMS: Fourteen-point review of systems negative, except as mentioned earlier. CURRENT MEDICATIONS: Reviewed. PHYSICAL EXAMINATION: VITAL SIGNS: Pulse is 84, blood pressure 98/47, respirations 17. HEENT: Conjunctiva normal. NECK: No JVD. CARDIOVASCULAR: S1, S2. RESPIRATION: Few scattered rhonchi. ABDOMEN: Soft. NERVOUS SYSTEM: Nonfocal. LABORATORY DATA: Reviewed. ASSESSMENT: 1. Acute right lobe pneumonia possibly gram-negative with possible sepsis present on admission. 2. Elevated lactic acid and lactic acidemia. 3. Abnormal movements, etiology uncertain. 4. Diabetes mellitus type 2. 5. Hypertension. 6. Hyperlipidemia. 7. History of congestive heart failure. 8. Hypothyroidism. 9. Chronic pain syndrome on pain pump. 10.History of bariatric surgery. 11.History of multiple complex medical issues. RECOMMENDATIONS: Recommend to continue current management. The patient on broad spectrum IV antibiotics. Closely follow with Infectious Disease and Pulmonary. The cultures are pending at this time. I recommend repeat labs. Continue to monitor. Antibiotics have been ordered. Prognosis guarded because of multiple complex medical issues of this patient as mentioned earlier. We will follow the patient closely with multiple consultants and further recommendations to follow. MMODL / IJN: [id number] /
[2024-12-08 09:26] LABS: HCT 33.4 % (37.2-46.3); HGB 10.3 g/dL (12.0-15.0); MCH 29.9 pg (27.0-32.0); MCHC 30.8 g/dL (32.0-37.0); MCV 97.1 FL (80.0-97.0); NRBC Per 100 WBC 0 X 10*3/uL (0.00-0.01); Platelet Count 208 X 10*3/uL (140-440); RBC 3.44 X 10*6/uL (4.10-5.20); RDW 13.6 % (11.5-14.5); WBC 13.71 X 10*3/uL (4.50-10.00)
[2024-12-08 09:27] LABS: Basophils # (A) 0.04 X 10*3/uL (0.00-0.10); Basophils % (A) 0.3 %; Eosinophils # (A) 0.07 X 10*3/uL (0.04-0.35); Eosinophils % (A) 0.5 %; Immature Grans, Automated 0.70 %; Lymphocytes # (A) 2.34 X 10*3/uL (0.90-5.00); Lymphocytes % (A) 17.1 %; Monocytes # (A) 0.67 X 10*3/uL (0.20-1.00); Monocytes % (A) 4.9 %; Neutrophils # (A) 10.49 X 10*3/uL (1.80-7.70); Neutrophils % (A) 76.5 %
[2024-12-08] MEDS: ONDANSETRON ODT 4 MG TAB PO PRN (10:05)
[2024-12-08] MEDS: CITALOPRAM HYDROBROMIDE 20 MG TAB PO SCH (10:05)
[2024-12-08] MEDS: ASPIRIN 81 MG PO SCH (10:05)
[2024-12-08] MEDS: SPIRONOLACTONE 25 MG TAB PO SCH (10:05)
[2024-12-08 10:10] LABS: Anion Gap 13.20 mmol/L (4.00-12.00); BUN/Creat Ratio 21.40 Ratio (12.00-20.00); Blood Urea Nitrogen 10.7 mg/dL (9.0-27.0); Calcium 8.7 mg/dL (8.7-10.3); Carbon Dioxide 23.8 mmol/L (21.6-31.8); Chloride 106 mmol/L (96-109); Glucose 107 mg/dL (70-110); Potassium 3.8 mmol/L (3.5-5.5); Sodium 143 mmol/L (135-145)
--- NOTE | 2024-12-08 11:06 | P.PN ---
Subjective Progress Note Date: 12/08/24 This is a pleasant 54-year-old female with a known history of hypertension, hyperlipidemia, hypothyroidism, neuropathy, chronic pain requiring a pain pump with recent change in her pain medications. She also has a history of smoking and using marijuana. She presented here to the emergency room yesterday after having complaints of nausea and asked tensive vomiting. She developed spasms and had uncontrolled muscle jerking and behavior as recorded by her family with their cell phone. A chest x-ray revealed a right perihilar patchy density possibly reflecting pneumonia. CT scan of the abdomen revealed no acute abdominal process however a patchy infiltrate in the right lower lobe suspicious for pneumonia was noted. She is seen today in consultation on the regular medical floor. She is currently sitting up in bed. Awake and alert in no acute distress. She currently denies any fever, chills. No shortness of breath. No cough or congestion. No hemoptysis. She did states she vomited quite a bit yesterday and does not remember much of what brought her into the hospital. CT scan of the brain revealed no acute intracranial process. White count 19.1. Hemoglobin 11.3. Platelets 210. Sodium 140. Potassium 3.8. Bicarb 22. BUN 15. Creatinine 0.52. Glucose 103. Ammonia level less than 9. TSH 1.21. Viral screen negative for influenza A/B, RSV, COVID. Urine Legionella screen [place]. Urinalysis clean. She is currently maintaining O2 saturations up to 99% on room air oxygen. She did have a Tmax of 102 on admission. Currently she is afebrile. Hemodynamically stable. The patient is seen today December 08, 2024 in follow-up on the regular medical floor. She is currently sitting up in bed. Awake and alert in no acute distress. Maintaining good O2 saturations in the 90s on room air oxygen. She denies any altered mental status or confusion. Her only complaint is of magdiel rrhea. Blood cultures revealing no growth. Sputum culture positive for Streptococcus pneumoniae. White count 13.7. Hemoglobin 10.3. Platelets 208. Sodium 143. Potassium 3.8. Bicarb 24. BUN 11. Creatinine 0.5. Glucose 107. CT angiogram of the chest ruled out pulmonary embolism. There was multifocal airspace opacities compatible with pneumonia. More so on the right lung. EEG revealed background slowing suggestive of mild encephalopathy likely due to toxic metabolic derangement. No focal slowing. No epileptic discharges. No seizure activity. She remains on DuoNeb inhalations. Continued on ceftriaxone. Objective - Vital Signs Vital signs: Vital Signs Temp 98.9 F 12/08/24 07:10 Pulse 76 12/08/24 09:41 Resp 18 12/08/24 07:10 BP 98/61 12/08/24 07:10 Pulse Ox 92 L 12/08/24 07:10 FiO2 Intake & Output 12/07/24 12/08/24 12/08/24 18:59 06:59 18:59 Intake Total 1650 Balance 1650 Intake: Oral 1650 Other: Voiding Method Toilet Toilet # Voids 1 6 - Exam GENERAL EXAM: Alert, obese, 54-year-old female, on room air oxygen, comfortable in no apparent distress. HEAD: Normocephalic. EYES: Normal reaction of pupils, equal size. NOSE: Clear with pink turbinates. THROAT: No erythema or exudates. NECK: No masses, no JVD. CHEST: No chest wall deformity. LUNGS: Equal air entry with few scattered rhonchi. CVS: S1 and S2 normal with no audible murmur, regular rhythm. ABDOMEN: No hepatosplenomegaly, normal bowel sounds, no guarding or rigidity. SPINE: No scoliosis or deformity SKIN: No rashes CENTRAL NERVOUS SYSTEM: No focal deficits, tone is normal in all 4 extremities. EXTREMITIES: There is no peripheral edema. No clubbing, no cyanosis. Peripheral pulses are intact. - Labs CBC & Chem 7: 12/08/24 03:46 12/08/24 03:46 Labs: Abnormal Lab Results - Last 24 Hours (Table) 12/07/24 12/07/24 12/08/24 Range/Units : 12:07 03:46 WBC 13.71 H (4.50-10.00) X 10*3/uL RBC 3.44 L (4.10-5.20) X 10*6/uL Hgb 10.3 L (12.0-15.0) g/dL Hct 33.4 L (37.2-46.3) % MCV 97.1 H (80.0-97.0) FL MCHC 30.8 L (32.0-37.0) g/dL Immature Gran # 0.10 H (0.00-0.04) X 10*3/uL Neutrophils # 10.49 H (1.80-7.70) X 10*3/uL Anion Gap 14.90 H (4.00-12.00) mmol/L Creatinine 0.5 L (0.6-1.5) mg/dL BUN/Creatinine Ratio 30.00 H (12.00-20.00) Ratio Calcium 8.5 L (8.7-10.3) mg/dL Creatine Kinase 257 H (30-135) U/L 12/08/24 Range/Units 03:46 WBC (4.50-10.00) X 10*3/uL RBC (4.10-5.20) X 10*6/uL Hgb (12.0-15.0) g/dL Hct (37.2-46.3) % MCV (80.0-97.0) FL MCHC (32.0-37.0) g/dL Immature Gran # (0.00-0.04) X 10*3/uL Neutrophils # (1.80-7.70) X 10*3/uL Anion Gap 13.20 H (4.00-12.00) mmol/L Creatinine 0.5 L (0.6-1.5) mg/dL BUN/Creatinine Ratio 21.40 H (12.00-20.00) Ratio Calcium (8.7-10.3) mg/dL Creatine Kinase (30-135) U/L Microbiology - Last 24 Hours (Table) 12/06/24 16:51 Gram Stain - Preliminary Sputum Sputum Culture - Preliminary Streptococcus pneumoniae 12/06/24 13:25 Blood Culture - Preliminary Blood 12/06/24 10:29 Blood Culture - Preliminary Blood Assessment and Plan Assessment: Nausea, vomiting and altered mental status with uncontrolled muscle movement and behavior as documented by family members on their cell phone. CT scan of the brain revealed no acute intracranial process. CT scan of the abdomen revealed no acute abdominal process. EEG revealed background slowing suggestive of mild encephalopathy likely due to toxic metabolic derangement. No focal slowing. No seizure activity. Febrile illness suspect secondary to community-acquired versus aspiration pneumonia. Legionella screen negative. Viral screen negative for influenza A/B, RSV, COVID Leukocytosis secondary to above, recovered Acute hypoxic respiratory failure secondary to above, recovered and on room air History of chronic tobacco dependence History of marijuana use Chronic pain syndrome maintained on a pain pump with recent change in medication Hypertension Hyperlipidemia Hypothyroidism Diabetes mellitus Diabetic neuropathy History of anxiety/depression Plan: The patient was seen and evaluated CT angiogram, labs and medications reviewed EEG results reviewed Currently stable and on room air Continue ceftriaxone Completed azithromycin Continue DuoNeb inhalations Neurology and Infectious disease following We will continue to follow I have personally seen and examined the patient, performed the documentation and the assessment and plan as written. Number of minutes spent on the visit: 10 Dictation was produced using [employer] dictation software. Please excuse any grammatical, word or spelling errors.
--- NOTE | 2024-12-08 15:44 | P.PN ---
Subjective Progress Note Date: 12/08/24 Principal diagnosis: Reason for follow-up with pneumonia likely aspiration etiology Patient is a 54-year-old female with a past medical history significant for eart Failure, Diabetes Mellitus, Hyperlipidemia, Hypertension, Thyroid Disorder, Vascular Disorder presenting to the hospital for evaluation of nausea and vomiting and also have cough with sputum production and some blood in it CT abdominal pelvis still shows evidence of right-sided pneumonia. On today's evaluation that is 12/09/2023, patient did have a temperature of 98.9 F this morning and denies having any chills, patient is on room air and breathing comfortably no chest pain and cough decrease in intensity, the patient did not have any nausea vomiting abdominal pain or any diarrhea. Patient white count is down to 13.71, creatinine 0.5 sputum is growing strep pneumo sensitivity pending Objective - Vital Signs Vital signs: Vital Signs Temp 98.9 F 12/08/24 07:10 Pulse 76 12/08/24 09:41 Resp 18 12/08/24 07:10 BP 98/61 12/08/24 07:10 Pulse Ox 92 L 12/08/24 07:10 FiO2 Intake & Output 12/07/24 12/08/24 12/08/24 18:59 06:59 18:59 Intake Total 1650 Balance 1650 Intake: Oral 1650 Other: Voiding Method Toilet Toilet # Voids 1 6 - Exam GENERAL DESCRIPTION: Middle-age female lying in bed in no distress RESPIRATORY SYSTEM: Unlabored breathing , decreased breath sounds at bases HEART: S1 S2 regular rate and rhythm , ABDOMEN: Soft , no tenderness EXTREMITIES: No edema feet - Labs CBC & Chem 7: 12/08/24 03:46 12/08/24 03:46 Labs: Abnormal Lab Results - Last 24 Hours (Table) 12/08/24 12/08/24 Range/Units 03:46 03:46 WBC 13.71 H (4.50-10.00) X 10*3/uL RBC 3.44 L (4.10-5.20) X 10*6/uL Hgb 10.3 L (12.0-15.0) g/dL Hct 33.4 L (37.2-46.3) % MCV 97.1 H (80.0-97.0) FL MCHC 30.8 L (32.0-37.0) g/dL Immature Gran # 0.10 H (0.00-0.04) X 10*3/uL Neutrophils # 10.49 H (1.80-7.70) X 10*3/uL Anion Gap 13.20 H (4.00-12.00) mmol/L Creatinine 0.5 L (0.6-1.5) mg/dL BUN/Creatinine Ratio 21.40 H (12.00-20.00) Ratio Microbiology - Last 24 Hours (Table) 12/06/24 16:51 Gram Stain - Preliminary Sputum Sputum Culture - Preliminary Streptococcus pneumoniae 12/06/24 13:25 Blood Culture - Preliminary Blood 12/06/24 10:29 Blood Culture - Preliminary Blood Assessment and Plan (1) Pneumonia Current Visit: Yes Status: Acute Code(s): J18.9 - PNEUMONIA, UNSPECIFIED ORGANISM SNOMED Code(s): 382052019 (2) Sepsis Current Visit: Yes Status: Acute Code(s): A41.9 - SEPSIS, UNSPECIFIED ORGANISM SNOMED Code(s): 71974222 Plan: 1patient presented to hospital with acute nausea vomiting also have symptoms of cough and shortness of breath in this patient who did have fever tachycardia elevated lactic acid meeting criteria for SIRS/sepsis source is right middle lobe pneumonia with a question of community-acquired versus pneumonia of aspiration etiology 2, patient urine for Legionella antigen is negative sputum cultures currently growing strep pneumo with sensitivities pending 3patient did have CT angiogram of the chest that was negative for PE still shows pneumonia mostly on the right upper and middle lobe concerning for possible aspiration etiology 4patient antibiotic has been switched over to Rocephin 2 g daily continue while waiting for sensitivity on strep pneumo to finalize Dictation was produced using [employer] dictation software. please excuse any grammatical, word or spelling errors. Time with Patient: Less than 30
[2024-12-08] MEDS: LEVOTHYROXINE 50 MCG TAB PO SCH (21:07)
[2024-12-08] MEDS: ATORVASTATIN 20 MG TAB PO SCH (21:07)
[2024-12-08] MEDS: MELATONIN 5 MG TABLET PO SCH (21:07)
--- NOTE | 2024-12-08 22:31 | P.PN ---
Subjective Progress Note Date: 12/08/24 Patient evaluated in follow up on the medical floor. Reporting cough and increased sputum production. Continues to report hemoptysis. Sputum culture showing streptococcus pneumoniae and continues on course of IV ceftriaxione. ID following. Not quite ready for DC. White blood cell count better and down to 1 3.71. Review of Systems Constitutional: Denied any fatigue denied any fever. Cardio vascular: denied any chest pain, palpitations Gastrointestinal: denied any nausea, vomiting, diarrhea Pulmonary: Denied any shortness of breath cough Neurologic denied any new focal deficits All inpatient medications were reviewed and appropriate changes in these medications as dictated in the interval history and assessment and plan. PHYSICAL EXAMINATION: GENERAL: The patient is alert and oriented x3, not in any acute distress. Well developed, well nourished. HEENT: Pupils are round and equally reacting to light. EOMI. No scleral icterus. No conjunctival pallor. Normocephalic, atraumatic. No pharyngeal erythema. No thyromegaly. CARDIOVASCULAR: S1 and S2 present. No murmurs, rubs, or gallops. PULMONARY: Chest is clear to auscultation, no wheezing or crackles. ABDOMEN: Soft, nontender, nondistended, normoactive bowel sounds. No palpable organomegaly. MUSCULOSKELETAL: No joint swelling or deformity. EXTREMITIES: No cyanosis, clubbing, or pedal edema. NEUROLOGICAL: Gross neurological examination did not reveal any focal deficits. SKIN: No rashes. Assessment Altered mental status likely from acute metabolic encephalopathy and toxic encephalopathy from infection with likely myoclonic jerking. EEG revealed background slowing suggestive of mild encephalopathy likely due to toxic metabo lic derangement. No focal slowing. Community acquired pneumonia with sputum culture showing streptococcus pneumoniae Sepsis Hemoptysis from above Acute hypoxemic respiratory failured weaned to room air Leukocytosis, improving Diabetes Mellitus type 2 , Chronic heart failure with no acute exacerbation, unknown EF Complex regional pain syndrome with implanted pain pump Peripheral neuropathy Hypothyroidism Former Smoker GI prophylaxis Plan Continue course of IV ceftriaxone Completed IV azithromycin Continue duonebs Pulmonology following ID following Encourage increased activity level The impression and plan of care has been dictated by Melinda Kurtz, Nurse Practitioner as directed. Dr. Violetta MD I have performed a history and physical examination and medical decision making of this patient, discussed the same with the dictator, and agree with the dictators assessment and plan as written, documented as a scribe. Based on total visit time, I have performed more than 50% of this visit. Objective - Vital Signs Vital signs: Vital Signs Temp 98.9 F 12/08/24 07:10 Pulse 80 12/08/24 13:07 Resp 18 12/08/24 07:10 BP 98/61 12/08/24 07:10 Pulse Ox 92 L 12/08/24 07:10 FiO2 Intake & Output 12/07/24 12/08/24 12/08/24 18:59 06:59 18:59 Intake Total 1650 Balance 1650 Intake: Oral 1650 Other: Voiding Method Toilet Toilet # Voids 1 6 - Labs CBC & Chem 7: 12/08/24 03:46 12/08/24 03:46 Labs: Abnormal Lab Results - Last 24 Hours (Table) 12/08/24 12/08/24 Range/Units 03:46 03:46 WBC 13.71 H (4.50-10.00) X 10*3/uL RBC 3.44 L (4.10-5.20) X 10*6/uL Hgb 10.3 L (12.0-15.0) g/dL Hct 33.4 L (37.2-46.3) % MCV 97.1 H (80.0-97.0) FL MCHC 30.8 L (32.0-37.0) g/dL Immature Gran # 0.10 H (0.00-0.04) X 10*3/uL Neutrophils # 10.49 H (1.80-7.70) X 10*3/uL Anion Gap 13.20 H (4.00-12.00) mmol/L Creatinine 0.5 L (0.6-1.5) mg/dL BUN/Creatinine Ratio 21.40 H (12.00-20.00) Ratio Microbiology - Last 24 Hours (Table) 12/06/24 16:51 Gram Stain - Preliminary Sputum Sputum Culture - Preliminary Streptococcus pneumoniae 12/06/24 13:25 Blood Culture - Preliminary Blood 12/06/24 10:29 Blood Culture - Preliminary Blood Assessment and Plan Time with Patient: Less than 30
--- NOTE | 2024-12-09 07:17 | XR ---
EXAMINATION TYPE: XR chest 1V portable DATE OF EXAM: 12/09/2024 5:51 AM COMPARISON: Chest radiographs from 12/07/2024 CLINICAL INDICATION: Female, 54 years old with history of Pneumonia; TECHNIQUE: XR chest 1V portable Frontal view of the chest. FINDINGS: Lungs/Pleura: Similar right perihilar airspace opacities. There is no evidence of pleural effusion, f ocal consolidation, or pneumothorax. Pulmonary vascularity: Unremarkable. Heart/mediastinum: Cardiomediastinal silhouette is enlarged. Musculoskeletal: No acute osseous pathology. IMPRESSION: Right perihilar patchy density may reflect developing pneumonia. Correlate clinically and progress st udies are recommended. [facility], , 12/09/2024 7:15 AM
[2024-12-09 08:53] LABS: Basophils # (A) 0.03 X 10*3/uL (0.00-0.10); Basophils % (A) 0.4 %; Eosinophils # (A) 0.13 X 10*3/uL (0.04-0.35); Eosinophils % (A) 1.7 %; HCT 35.9 % (37.2-46.3); HGB 10.7 g/dL (12.0-15.0); Immature Grans, Automated 0.50 %; Lymphocytes # (A) 2.92 X 10*3/uL (0.90-5.00); Lymphocytes % (A) 38.0 %; MCH 29.7 pg (27.0-32.0); MCHC 29.8 g/dL (32.0-37.0); MCV 99.7 FL (80.0-97.0); Monocytes # (A) 0.44 X 10*3/uL (0.20-1.00); Monocytes % (A) 5.7 %; NRBC Per 100 WBC 0 X 10*3/uL (0.00-0.01); Neutrophils # (A) 4.13 X 10*3/uL (1.80-7.70); Neutrophils % (A) 53.7 %; Platelet Count 213 X 10*3/uL (140-440); RBC 3.60 X 10*6/uL (4.10-5.20); RDW 13.4 % (11.5-14.5); WBC 7.69 X 10*3/uL (4.50-10.00)
[2024-12-09 09:03] LABS: Anion Gap 11.20 mmol/L (4.00-12.00); BUN/Creat Ratio 11.50 Ratio (12.00-20.00); Blood Urea Nitrogen 6.9 mg/dL (9.0-27.0); Calcium 9.0 mg/dL (8.7-10.3); Carbon Dioxide 28.8 mmol/L (21.6-31.8); Chloride 106 mmol/L (96-109); Glucose 113 mg/dL (70-110); Potassium 3.8 mmol/L (3.5-5.5); Sodium 146 mmol/L (135-145)
--- NOTE | 2024-12-09 12:32 | P.PN ---
Subjective Progress Note Date: 12/09/24 This is a pleasant 54-year-old female with a known history of hypertension, hyperlipidemia, hypothyroidism, neuropathy, chronic pain requiring a pain pump with recent change in her pain medications. She also has a history of smoking and using marijuana. She presented here to the emergency room yesterday after having complaints of nausea and asked tensive vomiting. She developed spasms and had uncontrolled muscle jerking and behavior as recorded by her family with their cell phone. A chest x-ray revealed a right perihilar patchy density possibly reflecting pneumonia. CT scan of the abdomen revealed no acute abdominal process however a patchy infiltrate in the right lower lobe suspicious for pneumonia was noted. She is seen today in consultation on the regular medical floor. She is currently sitting up in bed. Awake and alert in no acute distress. She currently denies any fever, chills. No shortness of breath. No cough or congestion. No hemoptysis. She did states she vomited quite a bit yesterday and does not remember much of what brought her into the hospital. CT scan of the brain revealed no acute intracranial process. White count 19.1. Hemoglobin 11.3. Platelets 210. Sodium 140. Potassium 3.8. Bicarb 22. BUN 15. Creatinine 0.52. Glucose 103. Ammonia level less than 9. TSH 1.21. Viral screen negative for influenza A/B, RSV, COVID. Urine Legionella screen [place] rh[place]. Urinalysis clean. She is currently maintaining O2 saturations up to 99% on room air oxygen. She did have a Tmax of 102 on admission. Currently she is afebrile. Hemodynamically stable. The patient is seen today December 08, 2024 in follow-up on the regular medical floor. She is currently sitting up in bed. Awake and alert in no acute distress. Maintaining good O2 saturations in the 90s on room air oxygen. She denies any altered mental status or confusion. Her only complaint is of magdiel rrhea. Blood cultures revealing no growth. Sputum culture positive for Streptococcus pneumoniae. White count 13.7. Hemoglobin 10.3. Platelets 208. Sodium 143. Potassium 3.8. Bicarb 24. BUN 11. Creatinine 0.5. Glucose 107. CT angiogram of the chest ruled out pulmonary embolism. There was multifocal airspace opacities compatible with pneumonia. More so on the right lung. EEG revealed background slowing suggestive of mild encephalopathy likely due to toxic metabolic derangement. No focal slowing. No epileptic discharges. No seizure activity. She remains on DuoNeb inhalations. Continued on ceftriaxone. The patient is seen today December 09, 2024 in follow-up on the regular medical floor. She is currently sitting up at the bedside. Awake and alert in no acute distress. Maintaining good O2 saturations in the 90s on room air. Denies any shortness of breath, cough or congestion. Her only complaint this morning is that of nausea. She remains on DuoNeb inhalations. Remains on ceftriaxone. Completed azithromycin. Sputum culture positive for Streptococcus pneumoniae. White count 7.6. Hemoglobin 10.7. Platelets 213. Sodium 146. Potassium 3.8. Bicarb 29. BUN 7. Creatinine 0.6. Glucose 113. Chest x-ray continues to show a right perihilar patchy density. Objective - Vital Signs Vital signs: Vital Signs Temp 97.7 F 12/09/24 07:17 Pulse 60 12/09/24 07:17 Resp 17 12/09/24 07:17 BP 122/76 12/09/24 07:17 Pulse Ox 97 12/09/24 07:17 FiO2 Intake & Output 12/08/24 12/09/24 12/09/24 18:59 06:59 18:59 Other: Voiding Method Toilet Toilet Toilet # Voids 4 2 - Exam GENERAL EXAM: Alert, obese, 54-year-old female, sitting up at the bedside, on room air oxygen, in no apparent distress. HEAD: Normocephalic. EYES: Normal reaction of pupils, equal size. NOSE: Clear with pink turbinates. THROAT: No erythema or exudates. NECK: No masses, no JVD. CHEST: No chest wall deformity. LUNGS: Equal air entry with few scattered rhonchi. CVS: S1 and S2 normal with no audible murmur, regular rhythm. ABDOMEN: No hepatosplenomegaly, normal bowel sounds, no guarding or rigidity. SPINE: No scoliosis or deformity SKIN: No rashes CENTRAL NERVOUS SYSTEM: No focal deficits, tone is normal in all 4 extremities. EXTREMITIES: There is no peripheral edema. No clubbing, no cyanosis. Peripheral pulses are intact. - Labs CBC & Chem 7: 12/09/24 03:56 12/09/24 03:52 Labs: Abnormal Lab Results - Last 24 Hours (Table) 07/06/25 07/06/25 Range/Units 03:52 03:56 RBC 3.60 L (4.10-5.20) X 10*6/uL Hgb 10.7 L (12.0-15.0) g/dL Hct 35.9 L (37.2-46.3) % MCV 99.7 H (80.0-97.0) FL MCHC 29.8 L (32.0-37.0) g/dL Sodium 146 H (135-145) mmol/L BUN 6.9 L (9.0-27.0) mg/dL BUN/Creatinine Ratio 11.50 L (12.00-20.00) Ratio Glucose 113 H (70-110) mg/dL Microbiology - Last 24 Hours (Table) 12/06/24 16:51 Gram Stain - Final Sputum Sputum Culture - Final Streptococcus pneumoniae 12/06/24 13:25 Blood Culture - Preliminary Blood 12/06/24 10:29 Blood Culture - Preliminary Blood Assessment and Plan Assessment: Nausea, vomiting and altered mental status with uncontrolled muscle movement and behavior as documented by family members on their cell phone. CT scan of the brain revealed no acute intracranial process. CT scan of the abdomen revealed no acute abdominal process. EEG revealed background slowing suggestive of mild encephalopathy likely due to toxic metabolic derangement. No focal slowing. No seizure activity. Febrile illness suspect secondary to community-acquired versus aspiration pneumonia. Legionella screen negative. Viral screen negative for influenza A/B, RSV, COVID Leukocytosis secondary to above, recovered Acute hypoxic respiratory failure secondary to above, recovered and on room air History of chronic tobacco dependence History of marijuana use Chronic pain syndrome maintained on a pain pump with recent change in medication Hypertension Hyperlipidemia Hypothyroidism Diabetes mellitus Diabetic neuropathy History of anxiety/depression Plan: The patient was seen and evaluated Chest x-ray, labs and medications reviewed Being treated for Klebsiella pneumoniae Currently stable and on room air Antibiotics per ID service Follow-up in our office 1 week post discharge I have personally seen and examined the patient, performed the documentation and the assessment and plan as written. Number of minutes spent on the visit: 10 Dictation was produced using [employer] software. Please excuse any grammatical, word or spelling errors.
[2024-12-09 13:55] VITALS: BP 118/73; PULSE 84; RESP 18; TEMP 98.2
[2024-12-09] MEDS: FLUTICASONE NASAL 50MCG/SPRAY 16GM BTL EA NOSTRIL SCH (14:01)
[2024-12-09] MEDS: PROCHLORPERAZINE INJ 10 MG/2 ML VIAL IVP PRN (14:01)
[2024-12-09] MEDS: LORATADINE 10 MG TAB PO SCH (14:01)
--- NOTE | 2024-12-09 16:30 | P.PN ---
Subjective Progress Note Date: 12/09/24 Principal diagnosis: Reason for follow-up with pneumonia likely aspiration etiology Patient is a 54-year-old female with a past medical history significant for eart Failure, Diabetes Mellitus, Hyperlipidemia, Hypertension, Thyroid Disorder, Vascular Disorder presenting to the hospital for evaluation of nausea and vomiting and also have cough with sputum production and some blood in it CT abdominal pelvis still shows evidence of right-sided pneumonia. On today's evaluation that is 12/09/2024, Patient is afebrile patient is currently on room air and denies having any shortness of breath, the patient denies any chest pain cough is decreased in intensity. The patient denies any nausea vomiting did not have any abdominal pain and no diarrhea, patient feeling better wants to go home. Patient white count normalized to 7.69, creatinine 0.6 sputum with a strep pneu mo sensitive pathogen Objective - Vital Signs Vital signs: Vital Signs Temp 97.7 F 12/09/24 07:17 Pulse 60 12/09/24 07:17 Resp 17 12/09/24 07:17 BP 122/76 12/09/24 07:17 Pulse Ox 97 12/09/24 07:17 FiO2 Intake & Output 12/08/24 12/09/24 12/09/24 18:59 06:59 18:59 Intake Total 240 Balance 240 Intake: Oral 240 Other: Voiding Method Toilet Toilet Toilet # Voids 4 2 3 - Exam GENERAL DESCRIPTION: Middle-age female lying in bed in no distress RESPIRATORY SYSTEM: Unlabored breathing , decreased breath sounds at bases HEART: S1 S2 regular rate and rhythm , ABDOMEN: Soft , no tenderness EXTREMITIES: No edema feet - Labs CBC & Chem 7: 12/09/24 03:56 12/09/24 03:52 Labs: Abnormal Lab Results - Last 24 Hours (Table) 12/09/24 12/09/24 Range/Units 03:52 03:56 RBC 3.60 L (4.10-5.20) X 10*6/uL Hgb 10.7 L (12.0-15.0) g/dL Hct 35.9 L (37.2-46.3) % MCV 99.7 H (80.0-97.0) FL MCHC 29.8 L (32.0-37.0) g/dL Sodium 146 H (135-145) mmol/L BUN 6.9 L (9.0-27.0) mg/dL BUN/Creatinine Ratio 11.50 L (12.00-20.00) Ratio Glucose 113 H (70-110) mg/dL Microbiology - Last 24 Hours (Table) 12/06/24 16:51 Gram Stain - Final Sputum Sputum Culture - Final Streptococcus pneumoniae 12/06/24 13:25 Blood Culture - Preliminary Blood 12/06/24 10:29 Blood Culture - Preliminary Blood Assessment and Plan (1) Pneumonia Status: Acute Code(s): J18.9 - PNEUMONIA, UNSPECIFIED ORGANISM SNOMED Code(s): 796846535 (2) Sepsis Status: Acute Code(s): A41.9 - SEPSIS, UNSPECIFIED ORGANISM SNOMED Code(s): 24768922 Plan: 1patient presented to hospital with acute nausea vomiting also have symptoms of cough and shortness of breath in this patient who did have fever tachycardia elevated lactic acid meeting criteria for SIRS/sepsis source is right middle lobe pneumonia with a question of community-acquired versus pneumonia of aspiration etiology 2, patient urine for Legionella antigen is negative sputum cultures currently growing strep pneumo with sensitivities pending 3patient did have CT angiogram of the chest that was negative for PE still shows pneumonia mostly on the right upper and middle lobe concerning for possible aspiration etiology 4patient has shown clinical improvement white count normalized wants to go home will finish therapy with oral Augmentin discussed with ELECTRICAL TIMING DEVICE CALIBRATOR for admitting team Dictation was produced using [employer] dictation software. please excuse any grammatical, word or spelling errors. Time with Patient: Less than 30
[2024-12-10 04:01] LABS: Mycoplasma IgG Antibody (EIA) 2.22 INDEX (<=0.90); Mycoplasma IgM Antibody 0.9 INDEX (<=0.90)
--- NOTE | 2024-12-14 10:47 | CDI ---
Documentation Clarification Form Date: 12/14/2024 10:17:41 AM From: Sarah Dorantes Phone: Admit Date: 12/06/2024 12:41:00 PM Patient Name: Cristal Connors Visit Number: [id number] Discharge Date: 12/09/2024 03:47:00 PM ATTENTION: The Clinical Documentation Specialists (CDI) and [facility] Coding Staff appreciate your assistance in clarifying documentation. Please respond to the clarification below the line at the bottom and electronically sign. The CDI & [facility] Coding staff will review the response and follow-up if needed. Please note: Queries are made part of the Legal Health Record. If you have any questions, please contact the author of this message via ITS. Doctor/Provider: Ye To Your patient has the documented diagnosis of Chronicheart failurewith no acute exacerbation,unknownEF per 12/08 Progress Note and other Progress Notes. Additional information regarding the type of CHF is requested. History/Risk Factors: 54yo F, AHRF, sepsis d/t Strep pneumoniae d/t asp PNA, CPS, HTN, HLD, hypothyroidism, DMII w neuropathy, met/toxic enceph, CRPS w pain pump, former smoker Clinical Indicators: VS/Pulse OX: 12/06/2506/03/25 09:14 12:00 Temperature 102 99.9 Pulse Rate 144 100 Respiratory 24 97 [id number] 109/58 O2 Sat by Pulse 97 95 BNP: 57 Chest X Ray: 12/06 Heart size is stable. 12/07 Heart/mediastinum: Cardiomediastinal silhouette is unremarkable. 12/09 Heart/mediastinum: Cardiomediastinal silhouette isenlarged. Treatment: Continue course of IV ceftriaxone. Completed IV azithromycin. Continue duonebs. Pulmonology following. ID following. Encourage increased activity level In your professional opinion, can you please clarify the type of chronic CHF, if known? [ ] Chronic Systolic Heart Failure (reduced EF) [ x] Chronic Diastolic Heart Failure (preserved EF) [ ] Chronic Systolic & Diastolic Heart Failure [ ] Other, please specify [ ] Unable to determine (Template Last Revised: July 2020) MTDD
--- NOTE | 2024-12-14 16:26 | P.DS ---
Providers Date of admission: 12/06/24 12:41 Attending physician: Ye To MD Consults: 12/06/24 12:43 Consult Physician Routine Consulting Provider: Yousuf Chaudhary Consult Reason/Comments: Pneumonia Do you want consulting provider notified?: Yes 12/06/24 12:44 Consult Physician Routine Consulting Provider: Tylor Ferrara Consult Reason/Comments: Pneumonia, sepsis Do you want consulting provider notified?: Yes 12/06/24 14:10 Consult Physician Routine Consulting Provider: Julio Cesar Martínez Consult Reason/Comments: abnormal movements. video available Do you want consulting provider notified?: Yes Primary care physician: Rupa Gutierrez Hospital Course: Final Diagnosis Altered mental status likely from acute metabolic encephalopathy and toxic encephalopathy from infection with likely myoclonic jerking. EEG revealed background slowing suggestive of mild encephalopathy likely due to toxic metabolic derangement. No focal slowing. Community acquired pneumonia with sputum culture showing streptococcus pneumoniae Sepsis Hemoptysis from above Acute hypoxemic respiratory failured weaned to room air Leukocytosis, improving Diabetes Mellitus type 2 , Chronic heart failure with no acute exacerbation, unknown EF Complex regional pain syndrome with implanted pain pump Peripheral neuropathy Hypothyroidism Former Smoker GI prophylaxis Discharge Disposition Patient stable for discharge home. Patient to continue course of oral Augmentin for the next 5 days on discharge. Patient to follow-up close with pulmonology infectious disease. Recommend to continue symptomatic care with antihistamine and Flonase [id number]. Otherwise continue all same home medications. Hospital Course This is a pleasant 54-year-old female with a known history of hypertension, hyperlipidemia, hypothyroidism, neuropathy, chronic pain requiring a pain pump with recent change in her pain medications. She also has a history of smoking and using marijuana. She presented here to the emergency room yesterday after having complaints of nausea and vomiting. She developed spasms and had uncontrolled muscle jerking and behavior as recorded by her family with their cell phone. A chest x-ray revealed a right perihilar patchy density possibly reflecting pneumonia. CT scan of the abdomen revealed no acute abdominal process however a patchy infiltrate in the right lower lobe suspicious for pneumonia was noted. On admit. Normal normal limits with negative. Her viral panel was negative for influenza and COVID. Her mycoplasma IgG was elevated. Legionella was negative. Patient was admitted to the hospital for consult placed to pulmonology and infectious disease services with concern for pneumonia. She underwent full neurological workup with a brain CT and EEG. Patient also had a chest CT angiography which revealed no evidence of pulmonary embolism with multifocal airspace opacities compatible with pneumonia. Clinically patient improved while on antibiotic therapy and ID was recommending a course of oral Augmentin for the next 5 days on discharge. Please see medication reconciliation for a list of current medications. Thank you for allowing us to participate in the care of this patient. The impression and plan of care has been dictated by Melinda Kurtz, Nurse Practitioner as directed. Dr. Violetta MD I have performed a history and physical examination and medical decision making of this patient, discussed the same with the dictator, and agree with the dictators assessment and plan as written, documented as a scribe. Based on total visit time, I have performed more than 50% of this visit. Patient Condition at Discharge: Fair Plan - Discharge Summary Discharge Rx Participant: Yes New Discharge Prescriptions: New Amoxic-Pot Clav 875-125Mg [Augmentin 875-125] 1 tab PO BID 5 Days #10 tab Loratadine [Claritin] 5 mg PO DAILY tab Fluticasone Nasal [place] [Flonase Nasal [place]] 2 spray EA NOSTRIL DAILY ml Continue HYDROmorphone HCL 4 mg PO BID PRN PRN Reason: Pain Gabapentin 800 mg PO TID #90 tablet Aspirin 81 mg PO DAILY Semaglutide [Ozempic] 1 mg SQ WE Selenium Sulfide 1 applic TOPICAL DIRECTED Levothyroxine Sodium [Synthroid] 50 mcg PO HS Atorvastatin [Lipitor] 20 mg PO HS Spironolactone 25 mg PO DAILY Citalopram Hydrobromide [Citalopram HBr] 40 mg PO DAILY Black Cohosh Root [Black Cohosh] 200 mg PO DAILY Ondansetron [Zofran] 4 mg PO Q6H PRN PRN Reason: Nausea Patient Own Pump 0 bag Discharge Medication List HYDROmorphone HCL 4 mg PO BID PRN 11/19/15 [History] Gabapentin 800 mg PO TID #90 tablet 01/08/16 [Rx] Atorvastatin [Lipitor] 20 mg PO HS 11/11/21 [History] Citalopram Hydrobromide [Citalopram HBr] 40 mg PO DAILY 11/11/21 [History] Levothyroxine Sodium [Synthroid] 50 mcg PO HS 11/11/21 [History] Spironolactone 25 mg PO DAILY 11/11/21 [History] Aspirin 81 mg PO DAILY 03/29/24 [History] Black Cohosh Root [Black Cohosh] 200 mg PO DAILY 03/29/24 [History] Semaglutide [Ozempic] 1 mg SQ WE 03/29/24 [History] Ondansetron [Zofran] 4 mg PO Q6H PRN 11/19/24 [History] Patient Own Pump 0 bag 12/06/24 [History] Selenium Sulfide 1 applic TOPICAL DIRECTED 12/06/24 [History] Amoxic-Pot Clav 875-125Mg [Augmentin 875-125] 1 tab PO BID 5 Days #10 tab 12/09 [Rx] Fluticasone Nasal [place] [Flonase Nasal [place]] 2 spray EA NOSTRIL DAILY ml 12/09/24 [Rx] Loratadine [Claritin] 5 mg PO DAILY tab 12/09/24 [Rx] Follow up Appointment(s)/Referral(s): Rupa Gutierrez DO [Primary Care Provider] - 1-2 days Tylor Ferrara MD [STAFF PHYSICIAN] - 1 Week Yousuf Chaudhary MD [STAFF PHYSICIAN] - 1 Week Ambulatory/Diagnostic Orders: Complete Blood Count w/diff [LAB.AMB] Time Frame: 3 Days, Location: None Selected Comprehensive Metabolic Panel [LAB.AMB] Location: None Selected Activity/Diet/Wound Care/Special Instructions: Diet as tolerated Continue zofran as needed Continue over the counter flonase and antihistamine (claritin, zyrtec, etc.) Complete 5 days of oral augmentin twice daily Follow up with Dr Ferrara in the office in 1 week Discharge Disposition: HOME SELF-CARE
== END 2024-12-09 15:47 | disposition home or self-care (01) | DRG 871 ==
LOC: EC 09:13 → 4SSUR 12:41 → OBSVTOIN 12:41 → 4SSUR 21:11
PROVIDERS: ADMIT Internal Medicine; ATTEND Internal Medicine
DX: A40.3 Sepsis due to Streptococcus pneumoniae (principal); G92.8 Other toxic encephalopathy; J13 Pneumonia due to Streptococcus pneumoniae; J96.01 Acute respiratory failure with hypoxia; E87.20 Acidosis, unspecified; I50.32 Chronic diastolic (congestive) heart failure; I11.0 Hypertensive heart disease with heart failure; E11.42 Type 2 diabetes mellitus with diabetic polyneuropathy; E03.9 Hypothyroidism, unspecified; F32.A Depression, unspecified; R04.2 Hemoptysis; G90.523 Complex regional pain syndrome I of lower limb, bilateral; G25.3 Myoclonus; E78.5 Hyperlipidemia, unspecified; F41.9 Anxiety disorder, unspecified; Z98.84 Bariatric surgery status; Z79.82 Long term (current) use of aspirin; Z79.899 Other long term (current) drug therapy; Z79.890 Hormone replacement therapy; Z79.85 Long-term (current) use of injectable non-insulin antidiabetic drugs; Z87.891 Personal history of nicotine dependence; Z79.891 Long term (current) use of opiate analgesic; Z97.8 Presence of other specified devices
CPT/HCPCS: 36415; 70450; 71045; 71046; 71275; 74177; 80048; 80053; 81003; 82140; 82550; 82565; 83605; 83880; 84443; 84520; 85025; 86738; 87040; 87070; 87077; 87186; 87205; 87449; 87636; 93005; 94640; 94760; 95819; 96361; 96365; 96367; 99285